=== PATIENT | male | born 1960 | race Caucasian/White ===

== ENCOUNTER → 2017-01-01 | Outpatient (REF) | payer MEDICARE, OTHER ==
[~2017-01-01] MED LIST: /ATOR40TA; /AUGM875TA; ALDA25TA2; ATAC32TA; CALCIUM WITH VIT D; CALCPOW2; CORE6.25; DEMA100T; ECOT325T5; GLUC1000; INSULANT; LASIX40 PO; LEVO25TA2; OMEP20TA7; POTA20TA2; SPIR25TA2; THERGRAN; TOPR100T; VICO5TAB
[2017-01-01 17:23] LABS: BASO % 0.4 % (0.0-1.0); EOS # 0.2 K/mm3 (0.0-0.50); EOS % 2.9 % (0.0-3.0); LARGE UNSTAINED CELL # 0.2 K/mm3 (0.0-0.4); LARGE UNSTAINED CELL % 2.7 % (0.0-4.0); LYMPH # 2.6 K/mm3 (1.5-4.5); LYMPH % 32.4 % (24.0-44.0); MEAN CORPUSCULAR HEMOGLOBIN 29.8 pg (27.0-33.0); MEAN CORPUSCULAR HGB CONC 32.6 g/dl (32.0-36.5); MEAN CORPUSCULAR VOLUME 91.3 fl (80.0-96.0); MONO # 0.6 K/mm3 (0.0-0.8); NEUTROPHILS # 4.3 K/mm3 (1.8-7.7); NEUTROPHILS % 54.5 % (36.0-66.0); PLATELET COUNT, AUTOMATED 188 k/mm3 (150-450); RED CELL DISTRIBUTION WIDTH 12.2 % (11.5-14.5); WHITE BLOOD COUNT 7.8 K/mm3 (4.0-10.0)
[2017-01-01 18:14] LABS: ALBUMIN 3.4 GM/DL (3.2-5.2); ALBUMIN/GLOBULIN RATIO 0.92 (1.00-1.93); BILIRUBIN,TOTAL 0.4 MG/DL (0.2-1.0); CALCIUM LEVEL 8.8 MG/DL (8.5-10.1); CREATININE FOR GFR 1.31 MG/DL (0.70-1.30); POTASSIUM SERUM 4.2 MEQ/L (3.5-5.1); TOTAL PROTEIN 7.1 GM/DL (6.4-8.2)
== END ==
LOC: M SFHCCAPE 07:44
PROVIDERS: ATTEND Physician Assistant
DX: E11.9 Type 2 diabetes mellitus without complications (principal); E78.5 Hyperlipidemia, unspecified; Z12.5 Encounter for screening for malignant neoplasm of prostate
CPT/HCPCS: 36415; 80053; 80061; 82043; 83036; 84443; 85025; G0103

== ENCOUNTER → 2017-04-07 | Outpatient (REF) | payer MEDICARE, OTHER ==
[~2017-04-07] MED LIST changes: -/ATOR40TA; +/ATOR40TA PO; -ALDA25TA2; +ALDA25TA2 PO; +AMIO200T PO; +AMPI500C9 PO; +ASPI325T24 PO; +BACT800T5 PO; +CALC1TAB30 PO; -GLUC1000; +GLUC1000 PO; -INSULANT; +INSULANT INJ; +JANU100T PO; +LISI2.5T3 PO; +METO1TAB7 PO; +POTA10CA PO; +SYNT75TA PO; -THERGRAN; +THERGRAN PO
[2017-04-07 20:39] LABS: ALBUMIN 3.4 GM/DL (3.2-5.2); ALBUMIN/GLOBULIN RATIO 0.89 (1.00-1.93); ALKALINE PHOSPHATASE 99 U/L (45-117); ALT/SGPT 67 U/L (12-78); ANION GAP 12 MEQ/L (8-16); AST/SGOT 35 U/L (15-37); BILIRUBIN,TOTAL 0.5 MG/DL (0.2-1.0); BLOOD UREA NITROGEN 22 MG/DL (7-18); CALCIUM LEVEL 8.8 MG/DL (8.5-10.1); CARBON DIOXIDE LEVEL 25 MEQ/L (21-32); CHLORIDE LEVEL 105 MEQ/L (98-107); CREATININE FOR GFR 1.27 MG/DL (0.70-1.30); FREE T4 1.37 NG/DL (0.76-1.46); GLOMERULAR FILTRATION RATE > 60.0 (>56); GLUCOSE, FASTING 242 MG/DL (70-105); POTASSIUM SERUM 4.6 MEQ/L (3.5-5.1); SODIUM LEVEL 142 MEQ/L (136-145); TOTAL PROTEIN 7.2 GM/DL (6.4-8.2)
== END ==
LOC: M SFHCCAPE 06:58
PROVIDERS: ATTEND Physician Assistant
DX: E11.9 Type 2 diabetes mellitus without complications (principal); E03.9 Hypothyroidism, unspecified

== ENCOUNTER → 2017-07-22 | Outpatient (REF) | payer MEDICARE, OTHER ==
[2017-07-22 16:47] LABS: ALBUMIN 3.4 GM/DL (3.2-5.2); ALBUMIN/GLOBULIN RATIO 0.87 (1.00-1.93); BILIRUBIN,TOTAL 0.5 MG/DL (0.2-1.0); CALCIUM LEVEL 8.8 MG/DL (8.5-10.1); CREATININE FOR GFR 1.32 MG/DL (0.70-1.30); FREE T4 1.31 NG/DL (0.76-1.46); GLOMERULAR FILTRATION RATE 59.3 (>56); POTASSIUM SERUM 4.4 MEQ/L (3.5-5.1); TOTAL PROTEIN 7.3 GM/DL (6.4-8.2)
[2017-07-22 18:12] LABS: BASO # 0.1 10^3/uL (0.0-0.2); BASO % 0.6 % (0.0-1.0); EOS # 0.3 10^3/uL (0.0-0.50); EOS % 2.5 % (0.0-3.0); IMMATURE GRANULOCYTE % 0.5 % (0-0); LYMPH # 3.2 10^3/uL (1.5-4.5); LYMPH % 31.2 % (24.0-44.0); MEAN CORPUSCULAR HEMOGLOBIN 29.9 pg (27.0-33.0); MEAN CORPUSCULAR HGB CONC 32.7 g/dl (32.0-36.5); MEAN CORPUSCULAR VOLUME 91.5 fl (80.0-96.0); MONO # 1.1 10^3/uL (0.0-0.8); MONO % 10.4 % (0.0-5.0); NEUTROPHILS # 5.6 10^3/uL (1.8-7.7); NEUTROPHILS % 54.8 % (36.0-66.0); PLATELET COUNT, AUTOMATED 184 10^3/uL (150-450); RED CELL DISTRIBUTION WIDTH 12.6 % (11.5-14.5); WHITE BLOOD COUNT 10.2 10^3/uL (4.0-10.0)
[2017-07-22 18:25] LABS: ADD MORPHOLOGY? NO
== END ==
LOC: M SFHCCAPE 07:13
PROVIDERS: ATTEND Physician Assistant
DX: I10 Essential (primary) hypertension (principal); E11.9 Type 2 diabetes mellitus without complications; E03.9 Hypothyroidism, unspecified; E78.5 Hyperlipidemia, unspecified

== ENCOUNTER → 2017-08-11 | Outpatient (REF) | payer MEDICARE, OTHER ==
[2017-08-11 17:15] LABS: BASO % 0.2 % (0.0-1.0); EOS # 0.1 10^3/uL (0.0-0.50); EOS % 1.1 % (0.0-3.0); IMMATURE GRANULOCYTE % 1.6 % (0-0); LYMPH # 1.1 10^3/uL (1.5-4.5); LYMPH % 9.6 % (24.0-44.0); MEAN CORPUSCULAR HGB CONC 33.6 g/dl (32.0-36.5); MEAN CORPUSCULAR VOLUME 89.2 fl (80.0-96.0); MONO # 0.9 10^3/uL (0.0-0.8); MONO % 8.3 % (0.0-5.0); NEUTROPHILS # 8.7 10^3/uL (1.8-7.7); NEUTROPHILS % 79.2 % (36.0-66.0); PLATELET COUNT, AUTOMATED 199 10^3/uL (150-450); RED CELL DISTRIBUTION WIDTH 13.1 % (11.5-14.5); WHITE BLOOD COUNT 10.9 10^3/uL (4.0-10.0)
[2017-08-11 18:55] LABS: ALBUMIN 2.3 GM/DL (3.2-5.2); ALBUMIN/GLOBULIN RATIO 0.51 (1.00-1.93); BILIRUBIN,TOTAL 0.6 MG/DL (0.2-1.0); CALCIUM LEVEL 8.6 MG/DL (8.5-10.1); CREATININE FOR GFR 1.53 MG/DL (0.70-1.30); FREE T4 1.74 NG/DL (0.76-1.46); POTASSIUM SERUM 4.6 MEQ/L (3.5-5.1); TOTAL PROTEIN 6.8 GM/DL (6.4-8.2)
[2017-08-12 20:12] LABS: CALCIUM OXALATE CRYSTALS SMALL
== END ==
LOC: M SFHCCAPE 07:50
PROVIDERS: ATTEND Physician Assistant
DX: R35.0 Frequency of micturition (principal); E03.9 Hypothyroidism, unspecified
CPT/HCPCS: 80053; 81001; 81002; 84439; 84443; 85025; 87088; 87186; G0463

== ENCOUNTER → 2017-08-15 | Outpatient (CLI) | payer MEDICARE, OTHER ==
--- NOTE | 2017-08-15 11:59 | REP ---
PA and lateral chest: Comparison 02/09/2012. Lung cain are clear. Cardiac size is normal. The jayna, mediastinum, and bony thorax are unremarkable. There are sternotomy wires, mediastinal surgical clips and a pacemaker entering from the right, all unchanged. Impression: There are no acute cardiopulmonary findings. Signed by Troy Rehman MD 08/15/2017 11:51 A
== END ==
LOC: M WUC 11:22
PROVIDERS: ATTEND Physician Assistant
DX: R07.89 Other chest pain (principal)

== ENCOUNTER 2017-08-17 20:11 | Inpatient (IN) | payer MEDICARE, OTHER ==
[~2017-08-17] VITALS: Ht 175.3 cm; Wt 109.9 kg
[~2017-08-17 20:11] MED LIST changes: -AMIO200T PO; -AMPI500C9 PO; -ASPI325T24 PO; -BACT800T5 PO; -CALC1TAB30 PO; -JANU100T PO; -LISI2.5T3 PO; -METO1TAB7 PO; -POTA10CA PO; -SYNT75TA PO
[2017-08-17] MEDS ORDERED: ALBUTEROL SULFATE 2.5 MG/0.5 ML INH NEB SOLN INH ONE (21:15)
[2017-08-17] MEDS ORDERED: SOD POLYSTYRENE SULFONATE SUSP 15 GM/60 ML UD PO ONE (21:15)
[2017-08-17] MEDS ORDERED: NS 1,000 ML IV ONE (21:15)
[2017-08-17] MEDS: NS 1,000 ML IV SCH (23:01)
[2017-08-18] VITALS (11 sets, daily range): BP systolic 120–186; BP diastolic 64–84
[2017-08-18 01:17] LABS: CALCIUM LEVEL 8.5 MG/DL (8.5-10.1); CREATININE FOR GFR 1.79 MG/DL (0.70-1.30); GLOMERULAR FILTRATION RATE 41.7 (>56); MAGNESIUM LEVEL 1.9 MG/DL (1.8-2.4)
[2017-08-18 01:25] LABS: POTASSIUM SERUM 6.2 MEQ/L (3.5-5.1)
[2017-08-18] MEDS ORDERED: CALCIUM GLUCONATE 1,000 MG in D5W MINI-BAG PLUS 100 ML IV ONE (02:45)
[2017-08-18] MEDS ORDERED: GLUCAGON FOR INJ 1 MG VIAL (J1610) SC PRN (02:45)
[2017-08-18] MEDS ORDERED: GLUCOSE 4 GM CHEW TABLET PO PRN (02:45)
[2017-08-18] MEDS ORDERED: DEXTROSE 50% 50 ML SYRINGE IV PRN (02:45)
[2017-08-18] MEDS ORDERED: ACETAMINOPHEN TAB 650MG DOSE (2X325MG) PO PRN (02:45)
[2017-08-18] MEDS ORDERED: ONDANSETRON 4MG/2ML VIAL (J2405) IV PRN ×2 (02:45→18:15)
[2017-08-18] MEDS ORDERED: ASPI325T24 PO (02:49)
[2017-08-18] MEDS ORDERED: JANU100T PO (02:49)
[2017-08-18] MEDS ORDERED: CALC1TAB30 PO (02:49)
[2017-08-18] MEDS ORDERED: SYNT75TA PO (02:49)
[2017-08-18] MEDS ORDERED: LISI2.5T3 PO (02:49)
[2017-08-18] MEDS ORDERED: METO1TAB7 PO (02:49)
[2017-08-18] MEDS ORDERED: POTA10CA PO (02:49)
[2017-08-18] MEDS ORDERED: AMIO200T PO (03:01)
--- NOTE | 2017-08-18 03:52 | HPEPDOC ---
General Date of Admission Aug 17, 2017 at 20:12 Other Providers PCP: Elaina Livingston Attending Physician: IRINA HINOJOSA MD Chief Complaint The patient is a 57-year-old male admitted with a reason for visit of Hyperkalemia. Source: Patient, Family History of Present Illness 57-year-old male with past medical history of interstitial disability, hypertension, dyslipidemia, diabetes mellitus, OR, CAD s/p CABG, and hypothyroidism was sent to the ER after lab work revealed a serum potassium level of 6.3. The patient states that he was called earlier today to go to the ER for further evaluation. Of note, the patient does take a potassium sparing diuretic spironolactone and supplemental potassium as well. The patient denies any acute complaints of fevers, chills, chest pain, palpitations, abdominal pain , or any nausea/vomiting/diarrhea. Home Medications Scheduled (Calcium 500+D 500-200 mg-Unit) 1 Tab Tab, 1 TAB PO QPM, (Reported) Amiodarone HCl (Amiodarone HCl) 200 Mg Tab, 200 MG PO ASDIRECTED, (Reported) THURSDAY THROUGH THURSDAY AT QPM Aspirin (Aspirin EC) 325 Mg Tabec, 325 MG PO QPM, (Reported) Atorvastatin Calcium (Lipitor) 40 Mg Tab, 40 MG PO QPM, (Reported) Insulin Glargine (Lantus) 100 Mg/Ml Inj, 60 UNITS INJ QPM, (Reported) Levothyroxine Sodium (Synthroid) 75 Mcg Tab, 75 MCG PO QPM, (Reported) Lisinopril (Lisinopril) 2.5 Mg Tab, 2.5 MG PO QPM, (Reported) Metformin Hydrochloride (Glucophage) 1,000 Mg Tab, 1,000 MG PO QPM, (Reported) Metoprolol Succinate (Metoprolol Succinate ER) 50 Mg Tab, 50 MG PO QPM, ( Reported) Multivitamins (Theragran) 1 Tab Tab, 1 TAB PO QPM, (Reported) Potassium Chloride (Klor-Con M10) 10 Meq Tabcr, 10 MEQ PO QPM, (Reported) Sitagliptin Phosphate (Januvia) 100 Mg Tab, 100 MG PO QPM, (Reported) Spironolactone (Aldactone) 25 Mg Tab, 25 MG PO QPM, (Reported) Allergies Coded Allergies: No Known Drug Allergy (Verified Allergy, Unknown, 4/9/13) Past Medical History Medical History As noted in HPI. Surgical History CARDIAC CATHETERIZATION CABG Family History Significant Family History: No pertinent family hx Social History * Smoker: other (currently uses E cigarettes only. Previously smoked 4 packs per day for 5 years, 2 packs per day for most of his life) Alcohol: Denies Drugs: denies Review of Symptoms Other systems 10 point review of systems negative unless otherwise specified in HPI. Physical Examination General Exam: Positive: Alert, Cooperative, No Acute Distress ENT Exam: Positive: Atraumatic, Mucous membr. moist/pink Neck Exam: Negative: JVD Chest Exam: Positive: Clear to auscultation, Normal air movement Heart Exam: Positive: Rate Normal, Normal S1, Normal S2 Telemetry: Positive: Sinus Abdomen Exam: Positive: Soft, Negative: Tenderness Extremity Exam: Negative: Tenderness, Swelling Psych Exam: Positive: Oriented x 3 Vital Signs Vital Signs Date Time Temp Pulse Resp B/P (MAP) Pulse Ox O2 Delivery O2 Flow Rate FiO2 08/18/17 02:20 149/89 (109) 08/18/17 02:11 68 94 08/17/17 20:11 97.1 20 Room Air Laboratory Data Labs 24H Laboratory Tests 2 08/18/17 00:47: Anion Gap 5L, Glomerular Filtration Rate 41.7L, Blood Urea Nitrogen 28H, Creatinine 1.79H, Sodium Level 136, Potassium Level 6.2*H, Chloride Level 105, Carbon Dioxide Level 26, Calcium Level 8.5, Magnesium Level 1.9 CBC/BMP Laboratory Tests 08/18/17 00:47 Calcium Level 8.5 Plan / VTE VTE Prophylaxis Ordered?: Yes Plan Plan Hyperkalemia likely 2/2 Sprinolactone Use, Supplemental Potassium EKG with no acute changes from hyperkalemia Patient given IVF, Kayexalate, Albuterol, and Calcium gluconate in the ER We will withold Sprinolactone and K supplementation Monitor on Telemetry Will repeat Serum K level in the AM Chronic Kidney Disease Stage IIIA Baseline Serum Cr ~1.3 The patient's serum creatinine has been trending over the last 4 weeks, and is currently at 1.79 We will withhold nephrotoxic medications Gentle IV fluid hydration ordered Renal ultrasound We'll follow-up BMP in the a.m. HX of OR, CAD s/p CABG Patient denies any acute complaints of chest pain, palpitations, shortness of breath Continue aspirin, statin, metoprolol Hypertension, stable Continue current regimen Diabetes mellitus Basal insulin ordered at a reduced dose Insulin sliding scale for additional coverage Dyslipidemia Continue statin Hypothyroidism Continue levothyroxine DVT prophylaxis Subcutaneous heparin The patient will be admitted under the service of Dr. Hinojosa, who will begin to follow the patient on 08/18/17 at 7 AM. WILFREDO MOBLEY MD Aug 18, 2017 03:52
[2017-08-18] MEDS ORDERED: BACT800T5 PO (04:15)
[2017-08-18 05:50] LABS: MEAN CORPUSCULAR HEMOGLOBIN 30.2 pg (27.0-33.0); MEAN CORPUSCULAR HGB CONC 32.5 g/dl (32.0-36.5); MEAN CORPUSCULAR VOLUME 92.7 fl (80.0-96.0); PLATELET COUNT, AUTOMATED 257 10^3/uL (150-450); RED CELL DISTRIBUTION WIDTH 13.3 % (11.5-14.5); WHITE BLOOD COUNT 8.8 10^3/uL (4.0-10.0)
[2017-08-18] MEDS: HEPARIN SOD (PORCINE) 5000 UNITS/ML VIAL SC SCH ×3 (06:10→21:35)
[2017-08-18 06:15] LABS: ALBUMIN 2.2 GM/DL (3.2-5.2); ALBUMIN/GLOBULIN RATIO 0.5 (1.00-1.93); BILIRUBIN,TOTAL 0.2 MG/DL (0.2-1.0); CALCIUM LEVEL 8.4 MG/DL (8.5-10.1); CREATININE FOR GFR 1.69 MG/DL (0.70-1.30); GLOMERULAR FILTRATION RATE 44.6 (>56); MAGNESIUM LEVEL 1.8 MG/DL (1.8-2.4); TOTAL PROTEIN 6.6 GM/DL (6.4-8.2)
[2017-08-18 06:23] LABS: POTASSIUM SERUM 5.6 MEQ/L (3.5-5.1)
[2017-08-18] MEDS: NS 1,000 ML IV SCH ×4 (06:45→22:50)
[2017-08-18] MEDS: IPRATROPIUM 0.5MG/ALBUTEROL 2.5MG INH SOL UD 3ML (DUONEB)(J7620) NEB SCH ×3 (07:31→20:07)
--- NOTE | 2017-08-18 08:01 | REP ---
Renal ultrasound: The kidneys are normal size. The right kidney measures 11.8 x 5.2 x 6.2 cm. Left kidney measures 13.1 5.5 x 6.8 cm. Renal cortical echogenicity is normal bilaterally. There is a 1.3 cm calculus in the lower pole left kidney. There is mild left renal hydronephrosis. There are no calculi are hydronephrosis on the right. There are no solid or cystic renal masses. There is questionably a soft tissue edema adjacent to the lower pole of the right kidney. This is nonspecific and could represent hemorrhage, pyelonephritis or renal infarct. Bladder ultrasound: The bladder appears adequately distended. No bladder polyps or masses are identified by ultrasound. Impression: Mild left hydronephrosis. 1.3 cm calculus in the lower pole left kidney. Soft tissue edema adjacent to the right renal lower pole, nonspecific, hemorrhage versus pyelonephritis versus renal infarct versus urinoma. No Signed by Troy Rehman MD 08/18/2017 07:53 A
[2017-08-18] MEDS: HumaLOG INSULIN (NovoLOG) PER UNIT SC SCH ×3 (08:51→18:34)
--- NOTE | 2017-08-18 09:33 | ECGEPIP ---
Stationary ECG Study [facility] - ED Test Date: 2017-08-17 Pat Name: JUAN ALBERTO RIVERA Department: Room: [place] [address] Gender: M Police Clerk: BuckB: 1960 Requested By: GERMÁN Alvarado Order Number: [id number] Reading MD: Dean Chakraborty Measurements Intervals [place] Rate: 74 P: 108 [place]: 224 QRS: 101 QRSD: 132 T: -39 QT: 375 QTc: 417 Interpretive Statements SINUS RHYTHM WITH FIRST DEGREE AV BLOCK MARKED RIGHT AXIS DEVIATION RIGHT BUNDLE BRANCH BLOCK NSTTW ABNORMALITIES NO PRIORS Electronically Signed On 08-18-2017 9:33:12 EDT by Dean Chakraborty
[2017-08-18] MEDS ORDERED: SOD POLYSTYRENE SULFONATE SUSP 15 GM/60 ML UD PO ONE (10:00)
--- NOTE | 2017-08-18 12:11 | REP ---
CT abdomen pelvis without IV or bowel contrast: Comparison is 09/13/2008. There is a staghorn calculus in the left renal pelvis measuring 15 mm craniocaudad by 17 mm transversely by 9 mm AP that is partially within the proximal left ureter. There is left hydronephrosis and mild perinephric stranding. There are no right renal collecting system calculi. There are vascular atheromatous calcifications in the region There is no ureteral nephrosis on the left on the right. There are no bladder calculi. The visualized lung cain are unremarkable. The unenhanced hepatic parenchyma, gallbladder, pancreas and spleen are unremarkable. The adrenals are unremarkable. Abdominal aorta is unremarkable. There is calcified atheroma at the origins of the celiac and superior mesenteric arteries. There is no bowel distension or obstruction. Pelvis: There are surgical clips adjacent to the cecum compatible with appendectomy. There is no adenopathy or ascites. There are descending colon and sigmoid colon diverticula without diverticulitis. Impression: Left renal staghorn calculus is partially within the proximal left ureter. There is left hydronephrosis. There is no hydroureter. There is diverticulosis without diverticulitis. Signed by Troy Rehman MD 08/18/2017 12:03 P
[2017-08-18 13:51] LABS: CREATININE FOR GFR 1.5 MG/DL (0.70-1.30); GLOMERULAR FILTRATION RATE 51.2 (>56)
[2017-08-18 13:58] LABS: POTASSIUM SERUM 5.8 MEQ/L (3.5-5.1)
--- NOTE | 2017-08-18 14:13 | IPN ---
DATE: 08/18/2017 Mr. Suarez is awake and appropriately interactive. He feels well. He has no complaints. No chest pain. No shortness of breath. No abdominal pain. Temperature 98.4. Pulse 66. Respiratory rate 18. Blood pressure 129/73. 94% on room air. Ins and outs notable for a negative fluid balance of -660. Body mass index was 36.1. He is awake, appropriately interactive and pleasantly conversant. No acute distress. Neck is thick. Breathing is symmetrical. I:E ratio is 1:3, diminished in the bases. Heart is in a regular rate and rhythm. Normal S1, S2. No significant arrhythmia on the monitor. Abdomen soft, doughy, nontender. White cell count 8.8, hemoglobin 12 and platelets of 257. Sodium 139, potassium 5.6, BUN 25, creatinine 1.69 trending downward. Ultrasound this morning showed a suspicion for a left sided hydronephrosis. CT scan in follow up shows a left renal staghorn calculus partially within the proximal left ureter with left hydronephrosis. Urine culture was insensitive only to erythromycin. ASSESSMENT: This is a 57-year-old with acute renal failure, hyperkalemia, with staghorn calculus and urinary tract infection. PLAN: 1. . The case has been discussed with Dr. Doe who has been consulted. Plan is to place a urinary stent with plans for further outpatient workup. Will continue with IV antibiotics. 2. Patient has acute renal failure which will be improved with placement of a stent, withholding nephrotoxic medications, and giving IV fluid. 3. Patient has history of myocardial infarction (CA) and coronary artery disease status post coronary artery bypass graft (CABG). Has had no complaints of chest pain or shortness of breath. 4. Patient has hypertension. 5. Patient has diabetes. 6. Patient has dyslipidemia. 7. Patient has hypothyroidism. I discussed this case with the patient and his health care proxy at bedside.
[2017-08-18] MEDS ORDERED: CALCIUM CHLORIDE 10% 1 GM/10 ML SYR IV STA ×2 (14:21→14:24)
[2017-08-18] MEDS ORDERED: ceFAZolin 1GM INJ (J0690) As Ordered ONE (15:26)
[2017-08-18] MEDS ORDERED: CONRAY-60 60% 50ML VIAL (Q9961) As Ordered ONE (16:29)
--- NOTE | 2017-08-18 16:34 | SMCUROLCON ---
Urology Consultation General Date of Consultation 08/18/17 Reason For Consultation This patient is seen for Hyperkalemia. History of Present Illness This is a 57 y/o M w/ a PMH significant for CAD (s/p CABG), HTN, DM2, and CKD, admitted to the hospital this morning for hyperkalemia. As part of his w/u, a renal US was performed that was notable for mild left hydronephrosis and a left renal stone. A CT A/P was then obtained that was notable for a 1cm left renal pelvis stone causing mild to moderate left hydronephrosis. The patient denies having left flank or abdominal pain, but his sister notes that he did have some pain last week. She also notes that he was started on a 7 day course of antibiotics last week for a UTI. He has a few doses of antibiotics left. He has no prior history of kidney stones. He has no urinary complaints at this time. Past Medical History Medical History see HPI Surgical Hstory see HPI Medications Current Medications Current Medications Acetaminophen (Tylenol Tab) 650 mg Q4HP PRN PO MILD PAIN OR FEVER; Start 08/18 at 02:45; Stop 09/17/17 at 02:44 Albuterol/ Ipratropium (Duoneb (Ipr 0.5mg/Alb 2.5mg)) 3 ml RQ6H NEB Last administered on 08/18/17 13:00; Start 08/18/17 at 08:00; Stop 09/17/17 at 07 :59 Amiodarone HCl (Pacerone, Cordarone) 200 mg MoTuWeThFr@1800 PO ; Start at 18:00; Stop 09/17/17 at 17:59 Aspirin (Ecotrin) 325 mg DAILY@1800 PO ; Start 08/18/17 at 18:00; Stop at 17:59 Atorvastatin Calcium (Lipitor) 40 mg DAILY@1800 PO ; Start 08/18/17 at 18:00; Stop 09/17/17 at 17:59 Calcium Chloride (Calcium Chloride 10%) 1 gm STAT STAT IV ; Start 08/18/17 at 14:21; Stop 08/18/17 at 14:22; Status Cancel Calcium Chloride (Calcium Chloride 10%) 1 gm STAT STAT IV Last administered on 08/18/17 14:38; Start 08/18/17 at 14:24; Stop 08/18/17 at 14:25; Status DC Dextrose (Dextrose 50%) 25 ml ASDIRECTED PRN IV SEE LABEL COMMENTS; Start at 02:45; Stop 09/17/17 at 02:44 Glucagon (Glucagon) 1 mg ASDIRECTED PRN SC SEE LABEL COMMENTS; Start 08/18/17 at 02:45; Stop 09/17/17 at 02:44 Glucose (Glucose) 16 GM ASDIRECTED PRN PO SEE LABEL COMMENTS; Start 08/18/17 at 02:45; Stop 09/17/17 at 02:44 Heparin Sodium (Porcine) (Heparin) 5,000 units Q8H SC Last administered on 06:10; Start 08/18/17 at 06:00; Stop 08/23/17 at 05:59 Home Med (Med Rec Complete!) ASDIRECTED XX ; Start 08/18/17 at 03:15; Stop at 03:15; Status DC Insulin Detemir (Levemir Insulin) 30 units DAILY@1800 SC ; Start 08/18/17 at 18 :00; Stop 09/17/17 at 17:59 Insulin Human Lispro (HumaLOG INSULIN) SEE PROTOCOL TABLE AC SC Last administered on 08/18/17 08:51; Start 08/18/17 at 07:30; Stop 09/17/17 at 07 :29 Insulin Human Lispro (HumaLOG INSULIN) SEE PROTOCOL TABLE QHS SC ; Start at 21:00; Stop 09/17/17 at 20:59 Levothyroxine Sodium (Synthroid) 75 mcg DAILY@1800 PO ; Start 08/18/17 at 18:00 ; Stop 09/17/17 at 17:59 Metoprolol Succinate (TopROL XL) 50 mg DAILY@1800 PO ; Start 08/18/17 at 18:00 ; Stop 09/17/17 at 17:59 Ondansetron HCl (ZOFRAN INJection) 4 mg Q6HP PRN IV NAUSEA OR VOMITING; Start 08/18/17 at 02:45; Stop 09/17/17 at 02:44 Sodium Chloride 1,000 ml @ 150 mls/hr Q6H40M IV Last administered on 14:25; Start 08/17/17 at 22:30; Stop 09/16/17 at 22:29 Allergies Allergies: Coded Allergies: No Known Drug Allergy (Verified Allergy, Unknown, 02/01/13) Review of Systems General: Denies: Fatigue, Malaise Skin: Denies: Rash, Lesions, Breakdown, Nail Changes Pulmonary: Denies: Dyspnea, Cough Cardiovascular: Denies Chest Pain, Denies Palpitations Gastrointestinal: Denies: Nausea, Vomiting, Abdominal Pain Genitourinary: Denies: Dysuria, Frequency, Incontinence, Hematuria Musculoskeletal: Denies: Neck Pain, Back Pain Psych: Reports: Mood Normal Physical Examination General Exam: Alert, No Acute Distress Chest Exam: Clear to auscultation Heart Exam: Rate Normal, Regular Rhythm Abdomen Exam: Soft, No: Tenderness Skin Exam: Nl turgor and temperature Neuro Exam: Normal Speech Psych Exam: Mental status NL, Mood NL Vital Signs/I&O Vital Signs Date Time Temp Pulse Resp B/P (MAP) Pulse Ox O2 Delivery O2 Flow Rate FiO2 08/18/17 12:00 98.7 72 18 133/76 (95) 96 Room Air I&O- Last 24 Hours up to 6 AM 08/19/17 06:00 Intake Total 1320 ml Output Total 1000 ml Balance 320 ml Laboratory Data 24H Labs Laboratory Tests 2 08/18/17 00:47: Anion Gap 5L, Glomerular Filtration Rate 41.7L, Blood Urea Nitrogen 28H, Creatinine 1.79H, Sodium Level 136, Potassium Level 6.2*H, Chloride Level 105, Carbon Dioxide Level 26, Calcium Level 8.5, Magnesium Level 1.9 08/18/17 05:32: Anion Gap 8, Glomerular Filtration Rate 44.6L, Blood Urea Nitrogen 25H, Creatinine 1.69H, Sodium Level 139, Potassium Level 5.6H, Chloride Level 105, Carbon Dioxide Level 26, Calcium Level 8.4L, Magnesium Level 1.8, Nucleated Red Blood Cells % (auto) 0.0, Aspartate Amino Transf (AST/SGOT) 40H, Alanine Aminotransferase (ALT/SGPT) 78, Alkaline Phosphatase 109, Total Bilirubin 0.2, Total Protein 6.6, Albumin 2.2L, Albumin/Globulin Ratio 0.50L 08/18/17 13:09: Anion Gap 6L, Glomerular Filtration Rate 51.2L, Blood Urea Nitrogen 22H, Creatinine 1.50H, Sodium Level 137, Potassium Level 5.8H, Chloride Level 105, Carbon Dioxide Level 26, Calcium Level 8.0L CBC/BMP Laboratory Tests 08/18/17 00:47 Calcium Level 8.5 08/18/17 05:32 Calcium Level 8.4 L, Red Blood Count 3.98 L, Mean Corpuscular Volume 92.7, Mean Corpuscular Hemoglobin 30.2, Mean Corpuscular Hemoglobin Concent 32.5, Red Cell Distribution Width 13.3, Aspartate Amino Transf (AST/SGOT) 40 H, Alanine Aminotransferase (ALT/SGPT) 78, Alkaline Phosphatase 109, Total Bilirubin 0.2, Total Protein 6.6, Albumin 2.2 L 08/18/17 13:09 Calcium Level 8.0 L Assessment This is a 57 y/o M admitted for hyperkalemia, now found to have an obstructing 1cm left ureteropelvic junction stone. The left renal obstruction might be playing a role in the hyperkalemia and GAYATRI. I recommended taking him to the OR today for cystoscopy and left ureteral stent placement. After a discussion of the risks and benefits of the procedure, informed consent was signed. Plan - informed consent signed for cystoscopy, left ureteral stent placement - levaquin preop - NPO until surgery DAMEON SHELLEY MD Aug 18, 2017 16:34
[2017-08-18] MEDS ORDERED: MIDAZOLAM INJ 2 MG/2 ML VIAL (J2250) As Ordered ONE (16:45)
[2017-08-18] MEDS ORDERED: LevoFLOXacin IV 500 MG in APPROPRIATE DILUENT 1 EA IV ONE (16:45)
[2017-08-18] MEDS ORDERED: fentaNYL 100 MCG/2 ML INJECTION (J3010) As Ordered ONE (16:45)
[2017-08-18] MEDS ORDERED: LIDOCAINE 2% 5ML JELLY UROJET As Ordered ONE (16:49)
[2017-08-18] MEDS ORDERED: LevoFLOXacin(LEVAQUIN)500 MG/100 ML BAG (J1956) As Ordered ONE (16:49)
[2017-08-18] MEDS ORDERED: PROPOFOL 200 MG/20 ML VIAL As Ordered ONE (17:09)
[2017-08-18] MEDS ORDERED: LIDOCAINE 2% INJ 100 MG/5 ML SDV (FOR ANES.) As Ordered ONE (17:09)
--- NOTE | 2017-08-18 17:56 | REP ---
Retrograde pyelogram: Four views. History: Hyperkalemia. Findings: A sequence of four last image hold fluoroscopic spot radiographs of the left abdomen document left ureteral cannulation, contrast injection, and double pigtail ureteral stenting. 44 seconds of fluoroscopy time is reported. Signed by Donis Kuhn MD 08/19/2017 02:17 P
[2017-08-18] MEDS ORDERED: LEVOTHYROXINE 75MCG TABLET (0.075MG) PO SCH (18:00)
[2017-08-18] MEDS ORDERED: AMIODARONE 200 MG TAB (PACERONE) PO SCH (18:00)
[2017-08-18] MEDS ORDERED: ATORVASTATIN 20 MG TAB PO SCH (18:00)
[2017-08-18] MEDS ORDERED: METOPROLOL SUCC (TopROL XL) 50MG **XL** TAB PO SCH (18:00)
[2017-08-18] MEDS ORDERED: ASPIRIN ENTERIC 325 MG TAB PO SCH (18:00)
[2017-08-18] MEDS ORDERED: LEVEMIR (INSULIN DETEMIR) 1 UNITS/0.01ML SC SCH (18:00)
[2017-08-18] MEDS ORDERED: LR 1,000 ML IV SCH (18:15)
[2017-08-18] MEDS ORDERED: fentaNYL 100 MCG/2 ML INJECTION (J3010) IV PRN (18:15)
[2017-08-18 18:39] LABS: CALCIUM LEVEL 8.1 MG/DL (8.5-10.1); CREATININE FOR GFR 1.52 MG/DL (0.70-1.30); GLOMERULAR FILTRATION RATE 50.4 (>56); POTASSIUM SERUM 5.6 MEQ/L (3.5-5.1)
[2017-08-18] MEDS ORDERED: HumaLOG INSULIN (NovoLOG) PER UNIT SC SCH (21:00)
[2017-08-19 00:32] LABS: CALCIUM LEVEL 8.4 MG/DL (8.5-10.1); CREATININE FOR GFR 1.41 MG/DL (0.70-1.30)
[2017-08-19 00:36] LABS: POTASSIUM SERUM 5.5 MEQ/L (3.5-5.1)
[2017-08-19] MEDS: IPRATROPIUM 0.5MG/ALBUTEROL 2.5MG INH SOL UD 3ML (DUONEB)(J7620) NEB SCH ×2 (02:00→07:07)
[2017-08-19 04:00] VITALS: BP 134/82
[2017-08-19] MEDS: HEPARIN SOD (PORCINE) 5000 UNITS/ML VIAL SC SCH (05:09)
[2017-08-19 05:43] LABS: MEAN CORPUSCULAR HEMOGLOBIN 30.4 pg (27.0-33.0); MEAN CORPUSCULAR HGB CONC 32.6 g/dl (32.0-36.5); PLATELET COUNT, AUTOMATED 200 10^3/uL (150-450); RED CELL DISTRIBUTION WIDTH 13.2 % (11.5-14.5); WHITE BLOOD COUNT 9.1 10^3/uL (4.0-10.0)
[2017-08-19 06:03] LABS: ANION GAP 5 MEQ/L (8-16); BLOOD UREA NITROGEN 16 MG/DL (7-18); CARBON DIOXIDE LEVEL 26 MEQ/L (21-32); CHLORIDE LEVEL 107 MEQ/L (98-107); CREATININE FOR GFR 1.28 MG/DL (0.70-1.30); GLOMERULAR FILTRATION RATE > 60.0 (>56); GLUCOSE, FASTING 146 MG/DL (70-105); MAGNESIUM LEVEL 1.7 MG/DL (1.8-2.4); POTASSIUM SERUM 5.1 MEQ/L (3.5-5.1); SODIUM LEVEL 138 MEQ/L (136-145)
[2017-08-19] MEDS: NS 1,000 ML IV SCH (06:31)
[2017-08-19] MEDS ORDERED: MAG SULF 1GM/100ML (MAG RUN) 1 GM in APPROPRIATE DILUENT 1 EA IV ONE (06:45)
[2017-08-19 08:00] VITALS: BP 134/70
[2017-08-19] MEDS ORDERED: AMPI500C9 PO (08:10)
--- NOTE | 2017-08-19 08:10 | IPNPDOC ---
Assessment/Plan Date Seen The patient was seen on 08/19/17. Patient Summary This is a 57 y/o M admitted for hyperkalemia, now found to have an obstructing 1cm left ureteropelvic junction stone. He is POD1 s/p cysto and left ureteral stent placement. His K level is normal this morning. His Cr is also trending down. Plan/VTE VTE Prophylaxis Ordered?: Yes Plan - ok for discharge from urology standpoint - per patient's sister, she believes he received bactrim for the enterococcus UTI diagnosed last week - if this is the case, it did not cover the UTI and he would need a 10 day course of culture-specific antibiotics - my office will arrange f/u for him to see me to get him set up for surgery for stone removal Subjective Review oF Systems Chief Complaint The patient is a 57-year-old male admitted with a reason for visit of Hyperkalemia. Events since Last Encounter No acute events o/n. The patient notes mild left flank pain since stent placement last night. He also notes urinary frequency. Denies fevers or chills. Objective Physical Examination General Exam: Alert, Cooperative, No Acute Distress Heart Exam: Positive: Normal S1, Normal S2 ABDOMEN EXAM: Soft Psych Exam: Mental status NL, Mood NL Vital Signs/I&O Vital Signs Date Time Temp Pulse Resp B/P (MAP) Pulse Ox O2 Delivery O2 Flow Rate FiO2 08/19/17 04:00 97.4 66 18 134/82 (99) 96 Room Air Laboratory Data Labs 24H Laboratory Tests 2 08/18/17 13:00: Bedside Glucose (Misc Panel) 205H 08/18/17 13:09: Anion Gap 6L, Glomerular Filtration Rate 51.2L, Blood Urea Nitrogen 22H, Creatinine 1.50H, Sodium Level 137, Potassium Level 5.8H, Chloride Level 105, Carbon Dioxide Level 26, Calcium Level 8.0L 08/18/17 17:43: Anion Gap 7L, Glomerular Filtration Rate 50.4L, Blood Urea Nitrogen 20H, Creatinine 1.52H, Sodium Level 138, Potassium Level 5.6H, Chloride Level 105, Carbon Dioxide Level 26, Calcium Level 8.1L 08/18/17 21:40: Bedside Glucose (Misc Panel) 249H 08/18/17 23:51: Anion Gap 6L, Glomerular Filtration Rate 55.0L, Blood Urea Nitrogen 18, Creatinine 1.41H, Sodium Level 135L, Potassium Level 5.5H, Chloride Level 105, Carbon Dioxide Level 24, Calcium Level 8.4L 08/19/17 05:29: Anion Gap 5L, Glomerular Filtration Rate > 60.0, Blood Urea Nitrogen 16, Creatinine 1.28, Sodium Level 138, Potassium Level 5.1, Chloride Level 107, Carbon Dioxide Level 26, Calcium Level 8.0L, Nucleated Red Blood Cells % (auto) 0.0, Magnesium Level 1.7L CBC/BMP Laboratory Tests 08/18/17 13:09 Calcium Level 8.0 L 08/18/17 17:43 Calcium Level 8.1 L 08/18/17 23:51 Calcium Level 8.4 L 08/19/17 05:29 Calcium Level 8.0 L, Red Blood Count 3.59 L, Mean Corpuscular Volume 93.0, Mean Corpuscular Hemoglobin 30.4, Mean Corpuscular Hemoglobin Concent 32.6, Red Cell Distribution Width 13.2 FSBS Laboratory Tests Test 08/18/17 13:00 08/18/17 21:40 Range/Units Bedside Glucose (Misc Panel) 205 249 70-105 MG/DL DAMEON SHELLEY MD Aug 19, 2017 08:10
[2017-08-19] MEDS: HumaLOG INSULIN (NovoLOG) PER UNIT SC SCH (08:50)
[2017-08-19] MEDS ORDERED: INFLUENZA QUADRIVALENT PF VACCINE 0.5ML SYRINGE (90686) IM ONE (09:00)
--- NOTE | 2017-08-19 17:33 | RO ---
DATE OF PROCEDURE: 08/18/2017 PREPROCEDURE DIAGNOSIS: Obstructing left ureteral stone. POSTPROCEDURE DIAGNOSIS: Obstructing left ureteral stone. PROCEDURE: Cystoscopy, left retrograde pyelogram with intraoperative interpretation of images, left ureteral stent placement. SURGEON: Dr. Lowell Doe GRADES 9 THROUGH 12 TEACHER: None. ANESTHESIA: Monitored anesthesia care (MAC). OPERATIVE INDICATIONS: This is a 57-year-old male who was admitted to the hospital with hyperkalemia and, on workup, was found to have an obstructing left ureteropelvic junction stone with moderate left hydronephrosis. He also had a urinary tract infection. It was recommended he be brought to the operating room today for the above listed procedure. DESCRIPTION OF PROCEDURE: Patient brought to the operating room and MAC anesthesia administered. Prophylactic antibiotics were infused. He was then placed in the dorsal lithotomy position and prepped and draped in the usual sterile fashion. A rigid cystoscope was inserted into the urethral meatus and advanced to the bladder. Once it was in the bladder, a guidewire was advanced up the left collecting system. I then advanced a #5[place] open-ended ureteral catheter up the left collecting system. The wire was then removed, and a retrograde pyelogram was then performed. It was notable for moderate left hydronephrosis. At this point, the wire was advanced back up the left collecting system and the open-ended ureteral catheter was removed. I then utilized the wire to advance the #7-[place] x 22-32 cm JJ ureteral stent up the left collecting system. The wire was then removed, and there were adequate curls of the stent in the left renal pelvis and in the bladder. The bladder was then emptied of all fluid, and this marked the conclusion of the procedure. The patient was then taken out of the dorsal lithotomy position, awakened from anesthesia, and transported to the recovery room in stable condition. ESTIMATED BLOOD LOSS: 0 mL. COMPLICATIONS: None. SPECIMENS: None. PLAN: The patient will be taken back to his room and will be monitored to see if his hyperkalemia improves. We will have to bring him back to the operating room in a few weeks for a cystoscopy, left ureteroscopy with laser lithotripsy.
--- NOTE | 2017-08-20 10:38 | DSES ---
DATE OF ADMISSION: 08/18/2017 DATE OF DISCHARGE: 08/19/2017 SPECIALISTS INVOLVED IN CARE: Dr. Doe. PROCEDURES PERFORMED DURING STAY: Placement of a left sided ureteral stent. DISCHARGE DIAGNOSES: 1. Obstructive uropathy. 2. Acute renal failure. 3. Hyperkalemia in the setting of acute renal failure. 4. Coronary artery disease, status post coronary artery bypass graft (CABG). 5. Hypertension. 6. Diabetes. 7. Dyslipidemia. 8. Hypothyroidism. SUMMARY OF HOSPITALIZATION: This is a 57-year-old who was sent in due to abnormal labs and was found to have acute renal failure and hyperkalemia. He was noted to have a left sided hydronephrosis with an obstructing stone. He was admitted to the hospitalist service. He was seen in consultation by Dr. Doe. He had previously been treated for a urinary tract infection. A ureteral stent was placed. His renal function improved. His hyperkalemia improved. On the day of discharge, he was feeling well. He had no complaints of pain, chest pain or shortness of breath. Temperature was 97.6, pulse 62, respiratory rate 18, blood pressure 134/70 and 95% on room air. Awake and appropriately interactive. Pleasantly conversant. Breathing is symmetrical, rested. Heart is regular rate and rhythm. Abdomen soft, doughy, nontender. Potassium was 5.1. Creatinine was 1.28, down from 1.79. White cell count 9.1. DISCHARGE INSTRUCTIONS: Followup with Dr. Doe per his instructions. Followup with Elaina Retana at [place] on 08/25/2017 at 11:00 a.m. Continue with ampicillin 500 mg by mouth four times daily, #40, amiodarone 200 mg by mouth Thursday through Thursday, aspirin 325 mg by mouth daily, atorvastatin 40 mg by mouth every evening, calcium and vitamin D supplement, Lantus 40 units subcutaneous every morning, Synthroid 60 mg every morning, lisinopril 2.5 mg every evening, metformin 1000 mg every evening, metoprolol succinate 50 mg by mouth every evening, multivitamin tablet daily. Restart potassium supplement in two days, 10 mEq. Restart Aldactone 25 mg every evening in two days. Continue Januvia 100 mg by mouth every evening. Discontinue Bactrim.
== END 2017-08-19 12:34 | disposition home health service (06) | DRG 694 ==
LOC: M ED 20:11 → M ED INP 20:12 → M PCU 08-18 04:10 → OBSVTOIN 08-18 13:50
PROVIDERS: ADMIT Internal Medicine; ATTEND Internal Medicine
PROC: 0T9780Z Drainage of Left Ureter with Drainage Device, Via Natural or Artificial Opening Endoscopic (ICD-10-PCS; principal; 2017-08-18 10:45)
DX: N13.0 Hydronephrosis with ureteropelvic junction obstruction (principal); N17.9 Acute kidney failure, unspecified; N39.0 Urinary tract infection, site not specified; E03.9 Hypothyroidism, unspecified; I12.9 Hypertensive chronic kidney disease with stage 1 through stage 4 chronic kidney disease, or unspecified chronic kidney disease; E78.5 Hyperlipidemia, unspecified; N18.3 Chronic kidney disease, stage 3 (moderate); E87.5 Hyperkalemia; E11.9 Type 2 diabetes mellitus without complications; I25.2 Old myocardial infarction; I25.10 Atherosclerotic heart disease of native coronary artery without angina pectoris; Z79.4 Long term (current) use of insulin; Z79.899 Other long term (current) drug therapy; Z95.1 Presence of aortocoronary bypass graft; F17.290 Nicotine dependence, other tobacco product, uncomplicated

== ENCOUNTER → 2017-08-17 | Outpatient (REF) | payer MEDICARE, OTHER ==
[2017-08-17 16:54] LABS: BASO # 0.1 10^3/uL (0.0-0.2); BASO % 0.6 % (0.0-1.0); EOS # 0.1 10^3/uL (0.0-0.50); EOS % 1.2 % (0.0-3.0); LYMPH # 2.7 10^3/uL (1.5-4.5); LYMPH % 21.9 % (24.0-44.0); MEAN CORPUSCULAR HEMOGLOBIN 29.5 pg (27.0-33.0); MEAN CORPUSCULAR HGB CONC 32.3 g/dl (32.0-36.5); MEAN CORPUSCULAR VOLUME 91.2 fl (80.0-96.0); MONO # 0.8 10^3/uL (0.0-0.8); MONO % 6.3 % (0.0-5.0); NEUTROPHILS # 8.1 10^3/uL (1.8-7.7); PLATELET COUNT, AUTOMATED 343 10^3/uL (150-450); RED CELL DISTRIBUTION WIDTH 13.3 % (11.5-14.5); WHITE BLOOD COUNT 12.1 10^3/uL (4.0-10.0)
[2017-08-17 18:48] LABS: ALBUMIN 2.7 GM/DL (3.2-5.2); ALBUMIN/GLOBULIN RATIO 0.59 (1.00-1.93); BILIRUBIN,TOTAL 0.4 MG/DL (0.2-1.0); CALCIUM LEVEL 9.3 MG/DL (8.5-10.1); CREATININE FOR GFR 1.68 MG/DL (0.70-1.30); FREE T4 1.46 NG/DL (0.76-1.46); GLOMERULAR FILTRATION RATE 44.9 (>56); TOTAL PROTEIN 7.3 GM/DL (6.4-8.2)
[2017-08-17 19:08] LABS: POTASSIUM SERUM 6.3 MEQ/L (3.5-5.1)
== END ==
LOC: M SFHCCAPE 10:46
PROVIDERS: ATTEND Physician Assistant
DX: N39.0 Urinary tract infection, site not specified (principal); E03.9 Hypothyroidism, unspecified

== ENCOUNTER → 2017-08-25 | Outpatient (REF) | payer MEDICARE, OTHER ==
[~2017-08-25] MED LIST changes: +AMIO200T PO; +AMPI500C9 PO; +ASPI325T24 PO; +BACT800T5 PO; +CALC1TAB30 PO; +JANU100T PO; +LISI2.5T3 PO; +METO1TAB7 PO; +POTA10CA PO; +SYNT75TA PO
[2017-08-25 17:19] LABS: BASO % 0.4 % (0.0-1.0); EOS # 0.1 10^3/uL (0.0-0.50); EOS % 1.1 % (0.0-3.0); IMMATURE GRANULOCYTE % 0.5 % (0-0); LYMPH # 2.5 10^3/uL (1.5-4.5); MEAN CORPUSCULAR HEMOGLOBIN 29.7 pg (27.0-33.0); MEAN CORPUSCULAR HGB CONC 32.3 g/dl (32.0-36.5); MEAN CORPUSCULAR VOLUME 92.2 fl (80.0-96.0); MONO # 0.8 10^3/uL (0.0-0.8); MONO % 7.6 % (0.0-5.0); NEUTROPHILS # 6.6 10^3/uL (1.8-7.7); NEUTROPHILS % 65.4 % (36.0-66.0); PLATELET COUNT, AUTOMATED 228 10^3/uL (150-450)
[2017-08-25 17:24] LABS: CALCIUM OXALATE CRYSTALS MODERATE
[2017-08-25 17:33] LABS: ALBUMIN 3.3 GM/DL (3.2-5.2); ALBUMIN/GLOBULIN RATIO 0.79 (1.00-1.93); BILIRUBIN,TOTAL 0.3 MG/DL (0.2-1.0); CREATININE FOR GFR 1.33 MG/DL (0.70-1.30); GLOMERULAR FILTRATION RATE 58.8 (>56); POTASSIUM SERUM 4.5 MEQ/L (3.5-5.1); TOTAL PROTEIN 7.5 GM/DL (6.4-8.2)
== END ==
LOC: M SFHCCAPE 08:46
PROVIDERS: ATTEND Physician Assistant
DX: E87.5 Hyperkalemia (principal); E11.9 Type 2 diabetes mellitus without complications; I10 Essential (primary) hypertension; E03.9 Hypothyroidism, unspecified; N13.9 Obstructive and reflux uropathy, unspecified
CPT/HCPCS: 80053; 81001; 85025; 87086; G0463

== ENCOUNTER → 2017-10-06 | Outpatient (REF) | payer MEDICARE, OTHER ==
[~2017-10-06] MED LIST changes: +[UNRECOGNIZED DRUG - REMARK] PO
[2017-10-06 17:08] LABS: CALCIUM LEVEL 8.9 MG/DL (8.5-10.1); CREATININE FOR GFR 1.4 MG/DL (0.70-1.30); GLOMERULAR FILTRATION RATE 55.4 (>56); POTASSIUM SERUM 4.5 MEQ/L (3.5-5.1)
[2017-10-06 17:14] LABS: MEAN CORPUSCULAR HEMOGLOBIN 29.6 pg (27.0-33.0); MEAN CORPUSCULAR VOLUME 89.8 fl (80.0-96.0); PLATELET COUNT, AUTOMATED 208 10^3/uL (150-450); WHITE BLOOD COUNT 8.9 10^3/uL (4.0-10.0)
== END ==
LOC: M LABSMT 09:41
PROVIDERS: ATTEND Urology
DX: Z01.818 Encounter for other preprocedural examination (principal); N20.0 Calculus of kidney; N39.0 Urinary tract infection, site not specified

== ENCOUNTER 2017-10-12 09:33 | Day surgery (SDC) | payer MEDICARE, OTHER ==
[~2017-10-12] VITALS: Ht 177.8 cm; Wt 111.5 kg
[~2017-10-12 09:33] MED LIST changes: -[UNRECOGNIZED DRUG - REMARK] PO
[2017-10-12] MEDS ORDERED: LR 1,000 ML IV ONE (09:45)
[2017-10-12] MEDS ORDERED: [UNRECOGNIZED DRUG - REMARK] PO (10:24)
[2017-10-12] MEDS ORDERED: HumaLOG INSULIN (NovoLOG) PER UNIT As Ordered ONE (11:00)
[2017-10-12] MEDS ORDERED: GENTAMICIN 80 MG in APPROPRIATE DILUENT 1 EA IV ONE (11:00)
[2017-10-12] MEDS ORDERED: VANCOMYCIN HCL 1,000 MG, VIAL MATE ADAPTER 1 EACH in D5W 250 ML IV ONE (11:00)
[2017-10-12] MEDS ORDERED: HumaLOG INSULIN (NovoLOG) PER UNIT SC ONE (11:15)
[2017-10-12] MEDS ORDERED: PROPOFOL 200 MG/20 ML VIAL As Ordered ONE (12:38)
[2017-10-12] MEDS ORDERED: ONDANSETRON 4MG/2ML VIAL (J2405) As Ordered ONE (12:38)
[2017-10-12] MEDS ORDERED: SUCCINYLCHOLINE 100 MG/5 ML SYRINGE (J0330) As Ordered ONE (12:38)
[2017-10-12] MEDS ORDERED: METOCLOPRAMIDE INJ 10MG/2ML VIAL (J2765) As Ordered ONE (12:38)
[2017-10-12] MEDS ORDERED: LIDOCAINE 2% INJ 100 MG/5 ML SDV (FOR ANES.) As Ordered ONE (12:38)
[2017-10-12] MEDS ORDERED: fentaNYL 100 MCG/2 ML INJECTION (J3010) As Ordered ONE (12:39)
[2017-10-12] MEDS ORDERED: MIDAZOLAM INJ 2 MG/2 ML VIAL (J2250) As Ordered ONE (12:39)
[2017-10-12] MEDS ORDERED: HumaLOG INSULIN (NovoLOG) PER UNIT SQ ONE (12:45)
[2017-10-12] MEDS ORDERED: dexameTHASONE 4 MG/ML 1ML VIAL (J1100) As Ordered ONE (13:05)
[2017-10-12] MEDS ORDERED: CONRAY-60 60% 50ML VIAL (Q9961) As Ordered ONE (14:41)
[2017-10-12] MEDS ORDERED: KETOROLAC 60 MG/2 ML VIAL (J1885) As Ordered ONE (15:03)
--- NOTE | 2017-10-12 15:20 | REP ---
Retrograde pyelogram: Three views. History: Cystogram with retrograde. 12 seconds of fluoroscopy time is reported. Findings: A sequence of three last image hold fluoroscopic spot radiographs of the abdomen document ureteral cannulation, contrast injection and double pigtail ureteral stenting. No laterality markers. Signed by Donis Kuhn MD 10/12/2017 04:14 P
[2017-10-12] MEDS ORDERED: HumaLOG INSULIN (NovoLOG) PER UNIT SC SCH ×3 (15:30→21:00)
[2017-10-12] MEDS ORDERED: PERCOCET 5MG/325MG TAB PO PRN (15:30)
[2017-10-12] MEDS ORDERED: LR 1,000 ML IV SCH (15:30)
[2017-10-12] MEDS ORDERED: ONDANSETRON 4MG/2ML VIAL (J2405) IV PRN (15:30)
[2017-10-12] MEDS ORDERED: ACETAMINOPHEN TAB 650MG DOSE (2X325MG) PO PRN (15:30)
[2017-10-12] MEDS ORDERED: fentaNYL 100 MCG/2 ML INJECTION (J3010) IV PRN (15:30)
[2017-10-12 17:15] VITALS: BP 119/76
[2017-10-12 17:45] VITALS: BP 136/84
[2017-10-12 18:45] VITALS: BP 112/69
[2017-10-12 19:45] VITALS: BP 114/69
[2017-10-12] MEDS ORDERED: GLUCOSE 4 GM CHEW TABLET PO PRN (20:00)
[2017-10-12] MEDS ORDERED: DEXTROSE 50% 50 ML SYRINGE IV PRN (20:00)
[2017-10-12] MEDS ORDERED: GLUCAGON FOR INJ 1 MG VIAL (J1610) SC PRN (20:00)
[2017-10-12 20:45] VITALS: BP 117/70
[2017-10-12 21:45] VITALS: BP 113/84
[2017-10-13 02:00] VITALS: BP 118/72
[2017-10-13 06:00] VITALS: BP 141/88
[2017-10-13] MEDS: HumaLOG INSULIN (NovoLOG) PER UNIT SC SCH ×2 (07:02→12:06)
--- NOTE | 2017-10-13 08:21 | IPNPDOC ---
Assessment/Plan Date Seen The patient was seen on 10/13/17. Patient Summary This is a 57 y/o M POD 1 s/p cysto, left ureteroscopy w/ laser lithotripsy and basket extraction of stones, and left ureteral stent exchange, admitted postop for GASTON monitoring. He feels well. He was still on nasal cannula when seen this morning. Plan/VTE VTE Prophylaxis Ordered?: Yes VTE Exclusion Mechanical Proph: N/A:VTE Prophy Ordered Plan - wean O2 as tolerated - continue home diabetes medication - plan for discharge home once weaned off of O2 and glucose is better controlled Subjective Review oF Systems Chief Complaint The patient is a 57-year-old male admitted with a reason for visit of Nephrolithiasis. Events since Last Encounter The patient was admitted to the hospital postop for GASTON monitoring b/c as he kept desaturating while in the PACU. He has been well o/n. Denies SOB. No chest pain. Denies flank or abdominal pain. No fevers or chills. Objective Physical Examination General Exam: Alert, Cooperative, No Acute Distress Skin Exam: Nl turgor and temperature Neuro Exam: Normal Speech Psych Exam: Mental status NL, Mood NL Vital Signs/I&O Vital Signs Date Time Temp Pulse Resp B/P (MAP) Pulse Ox O2 Delivery O2 Flow Rate FiO2 10/13/17 06:00 97.3 68 11 141/88 (105) 99 Nasal Cannula 2.0 Laboratory Data Labs 24H Laboratory Tests 2 10/12/17 10:18: Bedside Glucose (Misc Panel) 368H 10/12/17 12:30: Bedside Glucose (Misc Panel) 360H 10/12/17 14:00: 10/12/17 15:13: Bedside Glucose (Misc Panel) 243H 10/12/17 16:14: Bedside Glucose (Misc Panel) 238H FSBS Laboratory Tests Test 10/12/17 10:18 10/12/17 12:30 10/12/17 15:13 10/12/17 16:14 Range/Units Bedside Glucose (Misc Panel) 368 360 243 238 70-105 MG/DL DAMEON SHELLEY MD Oct 13, 2017 08:21
[2017-10-13] MEDS ORDERED: LEVEMIR (INSULIN DETEMIR) 1 UNITS/0.01ML SC SCH (09:00)
[2017-10-13 10:00] VITALS: BP 133/65
--- NOTE | 2017-10-13 10:53 | RO ---
DATE OF PROCEDURE: 10/12/2017 PREPROCEDURE DIAGNOSIS: Left kidney stones. POSTPROCEDURE DIAGNOSIS: Left kidney stones. PROCEDURE: Cystoscopy, left ureteroscopy with laser lithotripsy and basket extraction of stones, left retrograde pyelogram with intraoperative interpretation of images, left ureteral stent exchange. SURGEON: Lowell Doe MD EVENING ANCHOR: None. ANESTHESIA: General. OPERATIVE INDICATIONS: This is a 57-year-old male who was seen in the hospital approximately a month ago for concern for sepsis due to urinary tract infection. He was also found to have an obstructing 1.5 cm left kidney stone at that time. A ureteral stent was placed at that time, and his infection was treated. He is brought back to the operating room today to treat his stone. DESCRIPTION OF PROCEDURE: The patient was brought to the operating room, and general anesthesia was induced. Culture-specific antibiotics were infused. He was then placed in the dorsal lithotomy position and prepped and draped in the usual sterile fashion. A rigid cystoscope was inserted into the urethral meatus and advanced into the bladder. Once within the bladder, a wire was advanced up the left collecting system along side the previously-placed stent. The stent was then removed, leaving the wire in place. I then advanced an access sheath over the wire up into the left collecting system. This wire was then secured to the drape to serve as a safety wire. I then went in the access sheath with the flexible ureteroscope; and at the area of the ureteropelvic junction, a 1.5 cm stone was seen. The stone was then fragmented into several smaller pieces, using a 200 micron laser fiber. All of the larger fragments were then removed with a basket. Any remaining pieces that were left inside the kidney were small enough to pass. After I confirmed that all the larger stone fragments had been removed, a retrograde pyelogram was performed, and it was negative for hydronephrosis or extravasation. At this point, I withdrew the ureteral access sheath, along with the ureteroscope, and no large stones were seen within the ureter. I then utilized the previously-placed wire to advance a 7-Danish x 22-32 cm double J ureteral stent up into the left collecting system. The wire was then removed, and there were adequate curls of the stent in the left renal pelvis and in the bladder. The bladder was then emptied of all fluid, and this marked the conclusion of the procedure. The patient was then taken out of the dorsal lithotomy position, awakened from anesthesia, and transported to the recovery room in stable condition. ESTIMATED BLOOD LOSS: Minimal. COMPLICATIONS: None. SPECIMENS: Kidney stone fragments. PLAN: The patient will followup in the clinic in a few weeks for stent removal. I will get a kidneys, ureters, bladder (KUB) X-ray prior. NAREN
== END 2017-10-13 15:15 | disposition home or self-care (01) ==
LOC: M SDC 09:33 → M MS5PR 17:10 → M SDC 10-13 15:15
PROVIDERS: ATTEND Urology
DX: N20.0 Calculus of kidney (principal); I25.10 Atherosclerotic heart disease of native coronary artery without angina pectoris; I25.2 Old myocardial infarction; I11.0 Hypertensive heart disease with heart failure; E78.5 Hyperlipidemia, unspecified; E10.9 Type 1 diabetes mellitus without complications; E03.9 Hypothyroidism, unspecified; F79 Unspecified intellectual disabilities; R06.2 Wheezing; G47.9 Sleep disorder, unspecified; E66.01 Morbid (severe) obesity due to excess calories; Z79.899 Other long term (current) drug therapy; Z79.82 Long term (current) use of aspirin; Z79.84 Long term (current) use of oral hypoglycemic drugs; Z95.0 Presence of cardiac pacemaker; Z95.810 Presence of automatic (implantable) cardiac defibrillator; Z72.0 Tobacco use

== ENCOUNTER → 2017-11-01 | Outpatient (CLI) | payer MEDICARE, OTHER | LOC: M WUC 12:46 | DX: N20.1 Calculus of ureter (principal) | CPT/HCPCS: 74018 ==

== ENCOUNTER → 2018-05-24 | Outpatient (REF) | payer MEDICARE, OTHER ==
[2018-05-24 18:19] LABS: HEMATOCRIT 40.3 % (42.0-52.0); HEMOGLOBIN 13.2 g/dl (13.5-17.5); MEAN CORPUSCULAR HGB CONC 32.8 g/dl (32.0-36.5); MEAN CORPUSCULAR VOLUME 91.6 fl (80.0-96.0); PLATELET COUNT, AUTOMATED 209 10^3/uL (150-450); RED CELL DISTRIBUTION WIDTH 12.7 % (11.5-14.5); WHITE BLOOD COUNT 8.9 10^3/uL (4.0-10.0)
[2018-05-24 18:40] LABS: ANION GAP 12 MEQ/L (8-16); BLOOD UREA NITROGEN 26 MG/DL (7-18); CALCIUM LEVEL 8.9 MG/DL (8.5-10.1); CARBON DIOXIDE LEVEL 27 MEQ/L (21-32); CHLORIDE LEVEL 98 MEQ/L (98-107); CREATININE FOR GFR 1.36 MG/DL (0.70-1.30); GLOMERULAR FILTRATION RATE 57.1 (>56); GLUCOSE, FASTING 372 MG/DL (70-100); POTASSIUM SERUM 4.5 MEQ/L (3.5-5.1); SODIUM LEVEL 137 MEQ/L (136-145)
== END ==
LOC: M LABDRWCV 17:16
DX: I25.5 Ischemic cardiomyopathy (principal)
CPT/HCPCS: 80048

== ENCOUNTER → 2018-08-05 | Outpatient (REF) | payer MEDICARE, OTHER ==
[2018-08-05 17:16] LABS: BASO % 0.4 % (0.0-1.0); EOS # 0.2 10^3/uL (0.0-0.50); EOS % 2.5 % (0.0-3.0); HEMATOCRIT 42.9 % (42.0-52.0); HEMOGLOBIN 14.4 g/dl (13.5-17.5); IMMATURE GRANULOCYTE % 0.3 % (0-3.0); LYMPH # 2.3 10^3/uL (1.5-4.5); LYMPH % 31.5 % (24.0-44.0); MEAN CORPUSCULAR HEMOGLOBIN 30.4 pg (27.0-33.0); MEAN CORPUSCULAR HGB CONC 33.6 g/dl (32.0-36.5); MEAN CORPUSCULAR VOLUME 90.7 fl (80.0-96.0); MONO # 0.6 10^3/uL (0.0-0.8); MONO % 8.8 % (0.0-5.0); NEUTROPHILS # 4.1 10^3/uL (1.8-7.7); NEUTROPHILS % 56.5 % (36.0-66.0); PLATELET COUNT, AUTOMATED 164 10^3/uL (150-450); RED BLOOD COUNT 4.73 10^6/uL (4.30-6.10); RED CELL DISTRIBUTION WIDTH 12.1 % (11.5-14.5); WHITE BLOOD COUNT 7.3 10^3/uL (4.0-10.0)
[2018-08-05 17:25] LABS: ESTIMATED AVERAGE GLUCOSE 266 MG/DL (60-110); HEMOGLOBIN A1c 10.9 %
[2018-08-05 17:28] LABS: ALBUMIN 3.8 GM/DL (3.2-5.2); ALKALINE PHOSPHATASE 107 U/L (45-117); ALT/SGPT 61 U/L (12-78); ANION GAP 11 MEQ/L (8-16); AST/SGOT 31 U/L (7-37); BILIRUBIN,TOTAL 0.4 MG/DL (0.2-1.0); BLOOD UREA NITROGEN 30 MG/DL (7-18); CALCIUM LEVEL 8.8 MG/DL (8.5-10.1); CARBON DIOXIDE LEVEL 25 MEQ/L (21-32); CHLORIDE LEVEL 102 MEQ/L (98-107); CHOLESTEROL LEVEL 171 MG/DL (<200); CHOLESTEROL RISK RATIO 4.885 (<5); CREATININE FOR GFR 1.41 MG/DL (0.70-1.30); FREE T4 1.21 NG/DL (0.76-1.46); GLOMERULAR FILTRATION RATE 54.8 (>56); GLUCOSE, FASTING 331 MG/DL (70-100); HDL CHOLESTEROL 35 MG/DL (>40); LDL CHOLESTEROL 69 MG/DL (<100); NON-HDL-C 136 MG/DL; POTASSIUM SERUM 4.5 MEQ/L (3.5-5.1); PSA SCREENING 0.26 NG/ML (< 4.0); SODIUM LEVEL 138 MEQ/L (136-145); TOTAL PROTEIN 7.6 GM/DL (6.4-8.2); TRIGLYCERIDES LEVEL 337 MG/DL (<150)
[2018-08-05 17:57] LABS: MAU/CREAT RATIO 1388.4 MCG/MG (0.0-30.0)
== END ==
LOC: M SFHCCAPE 08:16
DX: Z12.5 Encounter for screening for malignant neoplasm of prostate (principal); E11.9 Type 2 diabetes mellitus without complications
CPT/HCPCS: 84443

== ENCOUNTER → 2019-01-20 | Outpatient (REF) | payer MEDICARE, OTHER ==
[~2019-01-20] MED LIST changes: -/ATOR40TA PO; +ASPI-255 PO; -ASPI325T24 PO; +KLOR10TA76 PO; +LIPI1TAB2 PO; +LISI-1046 PO; -LISI2.5T3 PO; +METO-745; -POTA10CA PO; -TOPR100T; +[UNRECOGNIZED DRUG - REMARK] PO
[2019-01-20 17:18] LABS: BASO # 0.1 10^3/uL (0.0-0.2); BASO % 0.7 % (0.0-1.0); EOS # 0.3 10^3/uL (0.0-0.50); EOS % 3.8 % (0.0-3.0); HEMATOCRIT 44.4 % (42.0-52.0); HEMOGLOBIN 14.7 g/dl (13.5-17.5); LYMPH % 33.8 % (24.0-44.0); MEAN CORPUSCULAR HEMOGLOBIN 30.4 pg (27.0-33.0); MEAN CORPUSCULAR HGB CONC 33.1 g/dl (32.0-36.5); MEAN CORPUSCULAR VOLUME 91.7 fl (80.0-96.0); MONO # 0.8 10^3/uL (0.0-0.8); NEUTROPHILS # 4.6 10^3/uL (1.8-7.7); NEUTROPHILS % 52.4 % (36.0-66.0); PLATELET COUNT, AUTOMATED 190 10^3/uL (150-450); RED BLOOD COUNT 4.84 10^6/uL (4.30-6.10); WHITE BLOOD COUNT 8.8 10^3/uL (4.0-10.0)
[2019-01-20 19:30] LABS: ERYTHROCYTE SEDIMENTATION RATE 13 mm/hr (0-20)
== END ==
LOC: M LABDRWCV 16:18
PROVIDERS: ATTEND Ophthalmology
DX: H34.10 Central retinal artery occlusion, unspecified eye (principal); E78.5 Hyperlipidemia, unspecified; E11.9 Type 2 diabetes mellitus without complications; E03.9 Hypothyroidism, unspecified

== ENCOUNTER → 2019-04-27 | Outpatient (REF) | payer MEDICARE, OTHER ==
[2019-04-27 17:28] LABS: ALBUMIN 3.6 GM/DL (3.2-5.2); ALT/SGPT 46 U/L (12-78); BILIRUBIN,TOTAL 0.3 MG/DL (0.2-1.0); BLOOD UREA NITROGEN 26 MG/DL (7-18); CALCIUM LEVEL 9.3 MG/DL (8.8-10.2); CARBON DIOXIDE LEVEL 24 MEQ/L (21-32); CHLORIDE LEVEL 98 MEQ/L (98-107); CHOLESTEROL LEVEL 200 MG/DL (<200); CHOLESTEROL RISK RATIO 6.451 (<5); CREATININE FOR GFR 1.43 MG/DL (0.70-1.30); FREE T4 1.16 NG/DL (0.76-1.46); GLOMERULAR FILTRATION RATE 53.7 (>49); GLUCOSE, FASTING 309 MG/DL (70-100); HDL CHOLESTEROL 31 MG/DL (>40); NON-HDL-C 169 MG/DL; POTASSIUM SERUM 4.6 MEQ/L (3.5-5.1); SODIUM LEVEL 134 MEQ/L (136-145); TOTAL PROTEIN 7.6 GM/DL (6.4-8.2); TRIGLYCERIDES LEVEL 735 MG/DL (<150)
[2019-04-27 18:18] LABS: MAU/CREAT RATIO 994.4 MCG/MG (0.0-30.0)
[2019-04-27 18:57] LABS: HEMOGLOBIN A1c 13.3 %
== END ==
LOC: M SFHCCAPE 07:40
PROVIDERS: ATTEND Physician Assistant
DX: E11.9 Type 2 diabetes mellitus without complications (principal); E03.9 Hypothyroidism, unspecified; E78.5 Hyperlipidemia, unspecified

== ENCOUNTER 2019-08-10 18:59 | Emergency (ER) | payer MEDICARE, OTHER ==
[~2019-08-10] VITALS: Ht 175.3 cm; Wt 95.5 kg
[2019-08-10] MEDS ORDERED: NS 1,000 ML IV ONE (19:30)
[2019-08-10 20:31] LABS: BASO % 0.4 % (0.0-1.0); EOS # 0.2 10^3/uL (0.0-0.5); EOS % 1.5 % (0.0-3.0); HEMATOCRIT 38.9 % (42.0-52.0); HEMOGLOBIN 13.2 g/dl (13.5-17.5); LYMPH # 2.1 10^3/uL (1.5-5.0); LYMPH % 21.4 % (24.0-44.0); MEAN CORPUSCULAR HEMOGLOBIN 30.6 pg (27.0-33.0); MEAN CORPUSCULAR HGB CONC 33.9 g/dl (32.0-36.5); MONO # 0.7 10^3/uL (0.0-0.8); MONO % 6.8 % (0.0-5.0); NEUTROPHILS # 6.9 10^3/uL (1.5-8.5); NEUTROPHILS % 69.4 % (36.0-66.0); PLATELET COUNT, AUTOMATED 211 10^3/uL (150-450); RED BLOOD COUNT 4.32 10^6/uL (4.30-6.10)
[2019-08-10 20:55] LABS: ERYTHROCYTE SEDIMENTATION RATE 67 mm/hr (0-20)
[2019-08-10 21:11] LABS: ALBUMIN 2.7 GM/DL (3.2-5.2); ALT/SGPT 26 U/L (12-78); BILIRUBIN,DIRECT < 0.1 MG/DL (0.0-0.2); BILIRUBIN,TOTAL 0.2 MG/DL (0.2-1.0); BLOOD UREA NITROGEN 26 MG/DL (7-18); C REACTIVE PROTEIN QUANTITATIV 2.13 MG/DL (0.00-0.30); CALCIUM LEVEL 8.6 MG/DL (8.8-10.2); CARBON DIOXIDE LEVEL 27 MEQ/L (21-32); CHLORIDE LEVEL 102 MEQ/L (98-107); CREATININE FOR GFR 1.34 MG/DL (0.70-1.30); GLOMERULAR FILTRATION RATE 57.9 (>49); GLUCOSE, FASTING 353 MG/DL (70-100); POTASSIUM SERUM 4.3 MEQ/L (3.5-5.1); SODIUM LEVEL 135 MEQ/L (136-145); TOTAL PROTEIN 6.4 GM/DL (6.4-8.2)
[2019-08-10] MEDS ORDERED: BACTRIM 160MG/800MG DS TAB PO ONE (22:15)
[2019-08-10] MEDS ORDERED: cefTRIAXone SOD 1 GM in D5W MINI-BAG PLUS 50 ML IV ONE (22:15)
[2019-08-10] MEDS ORDERED: KEFL500C17 PO (22:18)
[2019-08-10] MEDS ORDERED: BACT800T5 PO (22:18)
[2019-08-10 22:59] VITALS: BP 127/80
--- NOTE | 2019-08-11 08:35 | REP ---
Right forefoot: Four views. History: Cellulitis. Open ulcer. Findings: Four views of the right forefoot show mild osteoarthritis at the first MTP joint. There is mild dorsal soft tissue swelling. No soft tissue gas is seen. No opaque foreign body is noted. No fracture or bony destructive lesion is appreciated. Electronically Signed by Donis Kuhn MD 08/11/2019 08:26 A
== END 2019-08-10 23:07 | disposition home or self-care (01) ==
LOC: M ED 18:59
DX: E11.621 Type 2 diabetes mellitus with foot ulcer (principal); L03.031 Cellulitis of right toe; I50.9 Heart failure, unspecified; I10 Essential (primary) hypertension; E78.5 Hyperlipidemia, unspecified; E03.9 Hypothyroidism, unspecified; G93.1 Anoxic brain damage, not elsewhere classified; Z95.1 Presence of aortocoronary bypass graft; F17.200 Nicotine dependence, unspecified, uncomplicated; Z79.82 Long term (current) use of aspirin; Z79.4 Long term (current) use of insulin; Z79.899 Other long term (current) drug therapy
CPT/HCPCS: 73660; 80047; 80048; 80076; 83605; 85025; 85652; 86140; 87040; 87070; 87205; 96365; 99284; J0696

== ENCOUNTER → 2019-09-06 | Outpatient (REF) | payer MEDICARE, OTHER ==
[~2019-09-06] MED LIST changes: +KEFL500C17 PO
[2019-09-06 16:15] LABS: BASO # 0.1 10^3/uL (0.0-0.2); BASO % 0.6 % (0.0-1.0); EOS # 0.5 10^3/uL (0.0-0.5); EOS % 4.4 % (0.0-3.0); HEMOGLOBIN 13.9 g/dl (13.5-17.5); LYMPH # 4.1 10^3/uL (1.5-5.0); LYMPH % 34.3 % (24.0-44.0); MEAN CORPUSCULAR HEMOGLOBIN 29.4 pg (27.0-33.0); MEAN CORPUSCULAR HGB CONC 32.3 g/dl (32.0-36.5); MEAN CORPUSCULAR VOLUME 90.9 fl (80.0-96.0); MONO # 1.1 10^3/uL (0.0-0.8); MONO % 9.2 % (0.0-5.0); NEUTROPHILS # 6.1 10^3/uL (1.5-8.5); NEUTROPHILS % 51.2 % (36.0-66.0); PLATELET COUNT, AUTOMATED 189 10^3/uL (150-450); RED BLOOD COUNT 4.73 10^6/uL (4.30-6.10); WHITE BLOOD COUNT 11.9 10^3/uL (4.0-10.0)
[2019-09-06 16:26] LABS: ALBUMIN 3.4 GM/DL (3.2-5.2); BILIRUBIN,TOTAL 0.3 MG/DL (0.2-1.0); CALCIUM LEVEL 9.2 MG/DL (8.8-10.2); CHOLESTEROL RISK RATIO 4.4 (<5); CREATININE FOR GFR 1.35 MG/DL (0.70-1.30); FREE T4 1.01 NG/DL (0.76-1.46); GLOMERULAR FILTRATION RATE 57.4 (>49); POTASSIUM SERUM 4.3 MEQ/L (3.5-5.1); THYROID STIMULATING HORMONE 4.18 uIU/ML (0.358-3.740); TOTAL PROTEIN 7.6 GM/DL (6.4-8.2)
[2019-09-06 16:30] LABS: HEMOGLOBIN A1c 11.5 %
[2019-09-06 17:08] LABS: CREATININE, URINE 65.7 MG/DL; MAU/CREAT RATIO 1188.7 MCG/MG (0.0-30.0)
== END ==
LOC: M SFHCCAPE 08:40
PROVIDERS: ATTEND Physician Assistant
DX: E11.69 Type 2 diabetes mellitus with other specified complication (principal); E78.5 Hyperlipidemia, unspecified; E03.9 Hypothyroidism, unspecified

== ENCOUNTER → 2019-11-10 | Outpatient (POV) | payer MEDICARE, OTHER ==
[~2019-11-10] VITALS: Ht 177.8 cm; Wt 109.1 kg
[2019-11-10 15:39] VITALS: BP 142/87
--- NOTE | 2019-11-11 10:54 | IRCOV ---
[facility] IR Consult Office Visit IR Consult Office Visit DATE: Nov 10, 2019 REASON FOR CONSULTATION/CHIEF COMPLAINT: Nonhealing right foot ulcer. HISTORY OF PRESENT ILLNESS: 59-year-old male with coronary artery disease, diabetes, hypertension and hyperlipidemia presents with nonhealing right foot ulcer. Ulcer located on the plantar aspect of the right great toe. Patient states this is ongoing for months. Patient denies pain in the legs. Denies, intermittent claudication or rest pain. Patient suffers with numbness and tingling in the legs from diabetic neuropathy. Denies chest pain or shortness of breath. ALLERGIES: Please see below. HOME MEDICATIONS: Please see below. PAST MEDICAL HISTORY: SC 2010 Pacemaker defibrillator Diabetes Hypertension Hyperlipidemia Morbid obesity PAST SURGICAL HISTORY: Cardiac catheterization 2007 CABG 2007 ICD implant 2007 ICD removal for infection ICD reimplanted 2008 Left ureteral stent 2016 FAMILY HISTORY: Noncontributory. SOCIAL HISTORY: Smoker. Now on E cigarettes. Previously 4 packs a day. No alcohol or drugs. REVIEW OF SYSTEMS: Otherwise negative. PHYSICAL EXAMINATION: VITAL SIGNS: Please see below. GENERAL APPEARANCE: Appears well. Comfortable at rest. HEENT: No scleral icterus. RESPIRATORY: Little air movement. CARDIOVASCULAR: Normal rate. ABDOMEN: Soft nontender. EXTREMITIES: Right lower extremity: Hairless. Warm to touch. Right foot bandaged. Femoral pulse 2+ popliteal pulse + DP PT nonpalpable Left lower extremity: Hairless, warm to touch. Femoral pulse 2+ popliteal + DP PT nonpalpable. Mild edema. NEUROLOGICAL: Alert and oriented. PSYCHIATRIC: Appropriate to circumstance. LABORATORY DATA: 09/06/2019 hemoglobin 13.9 hematocrit 43 WBC 11.9 platelets 189 sodium 135 potassium 4.3 BUN 20 creatinine 1.35 Imaging: I personally reviewed the ultrasound of the right lower extremity from September 2019. Atherosclerotic disease in the SFA, popliteal artery and below knee. Monophasic waveform groin down. ASSESSMENT/PLAN: 59-year-old male smoker with coronary artery disease presents with nonhealing right lower extremity wound. I agree patient would benefit from right leg angiogram and/or intervention at the same time as appropriate. We have scheduled the patient for this procedure. I spent 30 minutes in consultation with the patient. Thank you for this referral. Cc Alexandra Gomez Allergies Coded Allergies: No Known Allergies (Unverified , 08/10/19) Home Medications Scheduled Amiodarone HCl (Amiodarone HCl), 200 MG PO ASDIRECTED, (Reported) Aspirin (Aspirin EC), 325 MG PO QPM, (Reported) Atorvastatin Calcium (Lipitor), 40 MG PO QPM, (Reported) Calcium Carbonate/Vitamin D3 (Calcium 500-Vit D3 200 Caplet), 1 TAB PO QPM, (Reported) Cephalexin (Keflex), 500 MG PO Q6H Insulin Glargine (Lantus), 60 UNITS INJ QPM, (Reported) Levothyroxine Sodium (Synthroid), 75 MCG PO QPM, (Reported) Lisinopril (Lisinopril), 2.5 MG PO QPM, (Reported) Metformin HCl (Glucophage), 1,000 MG PO QPM, (Reported) Metoprolol Succinate (Metoprolol Succinate), 50 MG PO QPM, (Reported) Multivitamins (Theragran), 1 TAB PO QPM, (Reported) Sitagliptin Phosphate (Januvia), 100 MG PO QPM, (Reported) Spironolactone (Aldactone), 25 MG PO QPM, (Reported) Sulfamethoxazole/Trimethoprim (Bactrim Ds Tablet), 1 TAB PO Q12H VS, I&O, 24H, Fishbone Vital Signs/I&O Vital Signs Date Time Temp Pulse Resp B/P (MAP) Pulse Ox O2 Delivery O2 Flow Rate FiO2 11/10/19 15:39 97.3 73 20 142/87 (105) 93 Room Air DEBRA ROGERS MD Nov 11, 2019 10:54
== END ==
LOC: M IRPOV 15:32
PROVIDERS: ATTEND Radiology Diagnostic Radiology
DX: I70.235 Atherosclerosis of native arteries of right leg with ulceration of other part of foot (principal); E11.621 Type 2 diabetes mellitus with foot ulcer; L97.519 Non-pressure chronic ulcer of other part of right foot with unspecified severity; E11.40 Type 2 diabetes mellitus with diabetic neuropathy, unspecified; I25.10 Atherosclerotic heart disease of native coronary artery without angina pectoris; I10 Essential (primary) hypertension; E78.5 Hyperlipidemia, unspecified; E66.01 Morbid (severe) obesity due to excess calories; F17.290 Nicotine dependence, other tobacco product, uncomplicated; Z95.5 Presence of coronary angioplasty implant and graft

== ENCOUNTER → 2019-11-24 | Outpatient (CLI) | payer MEDICARE, OTHER ==
[~2019-11-24] MED LIST changes: +CLOPIDOGREL 75 MG TAB As Ordered ONE; +CLOPIDOGREL 75 MG TAB PO ONE; +HEPARIN 1,000 UNITS/ML 10ML VIAL (FOR RADIOLOGY& DIALYSIS ONLY)(J1644-10) As Ordered ONE; +ISOVUE-300 61% 50ML VIAL (Q9967) As Ordered ONE; +LIDOCAINE 1% MDV 20ML VIAL As Ordered ONE; +MIDAZOLAM INJ 2 MG/2 ML VIAL (J2250) As Ordered ONE; +ONDANSETRON 4MG/2ML VIAL (J2405) IV PRN; +diphenhydrAMINE INJ 50MG/ML VIAL (J1200) As Ordered ONE; +fentaNYL 100 MCG/2 ML INJECTION (J3010) As Ordered ONE
[2019-11-24 09:35] LABS: HEMATOCRIT 43.3 % (42.0-52.0); HEMOGLOBIN 14.2 g/dl (13.5-17.5); MEAN CORPUSCULAR HEMOGLOBIN 29.8 pg (27.0-33.0); MEAN CORPUSCULAR HGB CONC 32.8 g/dl (32.0-36.5); PLATELET COUNT, AUTOMATED 187 10^3/uL (150-450); RED BLOOD COUNT 4.76 10^6/uL (4.30-6.10); WHITE BLOOD COUNT 8.6 10^3/uL (4.0-10.0)
[2019-11-24 09:42] LABS: BLOOD UREA NITROGEN 23 MG/DL (7-18); CALCIUM LEVEL 9.1 MG/DL (8.8-10.2); CARBON DIOXIDE LEVEL 29 MEQ/L (21-32); CHLORIDE LEVEL 102 MEQ/L (98-107); CREATININE FOR GFR 1.29 MG/DL (0.70-1.30); GLOMERULAR FILTRATION RATE > 60.0 (>49); GLUCOSE, FASTING 269 MG/DL (70-100); POTASSIUM SERUM 4.7 MEQ/L (3.5-5.1); SODIUM LEVEL 137 MEQ/L (136-145)
--- NOTE | 2019-11-24 12:15 | IRHP ---
[facility] IR Pre-Procedure H & P General Date of Service: Nov 24, 2019 Procedure: Same Day Surgery Interval History and Physical I have seen the patient and reviewed last H & P performed within 30 days. There is no significant interval change. History of Present Illness Chief Complaint The patient is a 59-year-old male admitted with a reason for visit of PAD. PRE-PROCEDURE DIAGNOSIS: PAD HEART: normal rate LUNGS: normal breathing at rest. ASA Classification ASA Classification: III-Severe systemic dis. Mallampati Score: II NPO: Yes Problems with prior sedation: No Obstructive Sleep Apnea: No Plan moderate sedation Allergies Coded Allergies: No Known Allergies (Unverified , 08/10/19) Home Medications Scheduled Amiodarone HCl (Amiodarone HCl), 200 MG PO ASDIRECTED, (Reported) Aspirin (Aspirin EC), 325 MG PO QPM, (Reported) Atorvastatin Calcium (Lipitor), 40 MG PO QPM, (Reported) Calcium Carbonate/Vitamin D3 (Calcium 500-Vit D3 200 Caplet), 1 TAB PO QPM, (Reported) Insulin Glargine (Lantus), 60 UNITS INJ QPM, (Reported) Levothyroxine Sodium (Synthroid), 75 MCG PO QPM, (Reported) Lisinopril (Lisinopril), 2.5 MG PO QPM, (Reported) Metformin HCl (Glucophage), 1,000 MG PO QPM, (Reported) Metoprolol Succinate (Metoprolol Succinate), 50 MG PO QPM, (Reported) Multivitamins (Theragran), 1 TAB PO QPM, (Reported) Sitagliptin Phosphate (Januvia), 100 MG PO QPM, (Reported) Spironolactone (Aldactone), 25 MG PO QPM, (Reported) Discontinued Medications Cephalexin (Keflex), 500 MG PO Q6H Discontinued Reason: PCP discontinued med Sulfamethoxazole/Trimethoprim (Bactrim Ds Tablet), 1 TAB PO Q12H Discontinued Reason: PCP discontinued med VS, I&O, 24H, Tomy Vital Signs/I&O Vital Signs Date Time Temp Pulse Resp B/P (MAP) Pulse Ox O2 Delivery O2 Flow Rate FiO2 11/24/19 12:08 51 18 94 Room Air 11/24/19 11:35 2 11/24/19 08:50 98.0 Laboratory Data 24H LABS Laboratory Tests 2 11/24/19 08:50: Nucleated Red Blood Cells % (auto) 0.0, Anion Gap 6L, Glomerular Filtration Rate > 60.0, Calcium Level 9.1 CBC/BMP Laboratory Tests 11/24/19 08:50 DEBRA ROGERS MD Nov 24, 2019 12:15
--- NOTE | 2019-11-24 14:01 | POST-OPPD ---
Postoperative Procedure Note Date Of Procedure: Nov 24, 2019 Time Of Procedure: 14:00 PREOPERATIVE DIAGNOSIS: PAD POSTOPERATIVE DIAGNOSIS: PAD FINDINGS: right SFA atherosclerotic stenosis. good run off below knee into foot. patent AT, PT and peroneal. PROCEDURE: right sfa angioplasty SURGEON: lisa ANESTHESIA: mod sed ESTIMATED BLOOD LOSS: < 5 ml COMPLICATIONS: none POSTOPERATIVE CONDITION: stable DEBRA ROGERS MD Nov 24, 2019 14:01
[2019-11-24 16:15] VITALS: BP 121/70
--- NOTE | 2019-11-25 12:35 | REP ---
IR Right leg angiogram. IR Right superficial femoral artery angioplasty. IR sub selective catheterization of anterior tibial artery and arteriogram. IR sub selective catheterization of tibioperoneal trunk and arteriogram . IR sub selective catheterization of posterior tibial artery and arteriogram. IR ultrasound guided left femoral artery access. IR moderate sedation. Clinical Information: Right lower extremity non healing wounds. Physician: Dr Lovealce.Procedure: The patient was advised of the benefits, risks, and alternatives of the procedure and informed consent was obtained.A time out was performed with verification of the patient's name, MRN, site of procedure, and type of procedure to be performed. The patient was positioned in the supine position on the angiographic table. The site was prepped and draped in the usual sterile fashion.Moderate sedation was performed by the physician including the presence of an independent trained observer who assisted in monitoring the patient's level of consciousness and physiological status. Following the administration of Fentanyl and Versed, the physician spent 90 minutes of continuous hkti-md-[id number] time with the patient. A network contractor radiograph reveals no gross abnormality. The left femoral artery was accessed under ultrasound guidance with a micropuncture kit. A PacketVideo wire was advanced into the aorta. The micropuncture sheath was exchanged over the wire for a a 6-Algerian vascular sheath. A flush catheter was advanced over the wire and used to catheterize the abdominal aorta. A pelvic arteriogram was performed. This demonstrates patent right common iliac, external iliac and internal iliac arteries. A Glidewire was advanced through the flush catheter and under fluoroscopy guidance was used to gain up and over access into the right common iliac artery. The flush catheter was exchanged over the wire for a glide cath. The glide cath in conjunction with a Glidewire was used to catheterize the right common femoral artery. A right leg angiogram was performed from this location. This demonstrates patent right common femoral artery, superficial femoral artery and profunda femoris. There is atherosclerotic disease and multi segment greater than 50% luminal stenosis in the mid and distal superficial femoral artery. An angiogram further down the leg was performed and this demonstrates patent popliteal artery. A below-knee runoff arteriogram was performed but due to patient's involuntary leg movements, this was not diagnostic. Therefore, a micro catheter and micro wire were inserted through the diagnostic catheter and used to sub selectively catheterize the run off vessels. A micro catheter and micro wire were used to sub selectively catheterize the anterior tibial artery. An arteriogram was performed this demonstrates patent proximal and mid anterior tibial artery. A micro catheter and micro wire were then used to sub selectively catheterize the distal anterior tibial artery. An arteriogram was performed and this demonstrates patent distal anterior tibial artery and dorsalis pedis. The micro catheter and micro wire were retracted and used to sub selectively catheterize the posterior tibial artery. An arteriogram was performed and this demonstrates patent posterior tibial artery, proximal mid and distal coursing into the foot without stenosis or occlusion. The micro catheter micro wire were retracted and used to sub selectively catheterize the tibioperoneal trunk. An arteriogram was performed and this demonstrates patent peroneal and posterior tibial artery. The micro catheter and micro wire were removed. An 035 wire was advanced through the diagnostic catheter into the popliteal artery. The catheter was removed over the wire. A 6 x 200 mm Backus balloon was advanced over the wire under fluoroscopy guidance and positioned in the mid and distal superficial femoral artery. SFA angioplasty was performed. Heparin was administered. The balloon was deflated and removed over the wire. Post angioplasty arteriogram was performed and this demonstrates improved flow in the mid and distal superficial femoral artery. No vessel spasm, dissection or cutoff. Post angioplasty follow-up below-knee runoff was performed and this demonstrates patent below-knee runoff. No vessel spasm, injury or distal emboli. The catheter was removed. A 6-Algerian Mynx device was used to close the groin arteriotomy and the sheath was removed. Hemostasis achieved. A sterile dressing was applied to the site. Patient tolerated the procedure well and was transferred to PRU in stable condition. Complications: None. Estimated blood loss: Less than 5 ml. Impression: 1. Right leg angiogram demonstrates atherosclerotic disease with multi segment greater than 50% percent stenosis in the mid and distal superficial femoral artery. 2. Below-knee selective runoff arteriograms demonstrates patent anterior tibial, peroneal and posterior tibial arteries with good runoff into the foot. No occlusions or stenosis. 3. Successful superficial femoral artery angioplasty with improved flow. 4. Follow-up in IR clinic in 1 month and continue follow up with wound care. 5. Patient started on Plavix 75 mg in addition to aspirin 81. Advised on importance of smoking cessation, healthy diet and exercise. Thank you for this referral. cc Dr. Soliz. CC Nessa Gomez. Electronically Signed by Genesis Lovelace MD 11/25/2019 12:34 P
== END ==
LOC: M IRPRO 08:43
PROVIDERS: ATTEND Radiology Diagnostic Radiology
DX: I70.239 Atherosclerosis of native arteries of right leg with ulceration of unspecified site (principal)
CPT/HCPCS: 37224; 75710; 75774; 80048; 85027; 99152; 99153; C1725; C1760; C1769; C1887; C1894; J1644; J2250; J3010; Q9967

== ENCOUNTER → 2019-12-13 | Outpatient (REF) | payer MEDICARE, OTHER ==
[~2019-12-13] MED LIST changes: -CLOPIDOGREL 75 MG TAB As Ordered ONE; -CLOPIDOGREL 75 MG TAB PO ONE; -HEPARIN 1,000 UNITS/ML 10ML VIAL (FOR RADIOLOGY& DIALYSIS ONLY)(J1644-10) As Ordered ONE; -ISOVUE-300 61% 50ML VIAL (Q9967) As Ordered ONE; -LIDOCAINE 1% MDV 20ML VIAL As Ordered ONE; -MIDAZOLAM INJ 2 MG/2 ML VIAL (J2250) As Ordered ONE; -ONDANSETRON 4MG/2ML VIAL (J2405) IV PRN; -diphenhydrAMINE INJ 50MG/ML VIAL (J1200) As Ordered ONE; -fentaNYL 100 MCG/2 ML INJECTION (J3010) As Ordered ONE
[2019-12-13 17:10] LABS: BASO # 0.1 10^3/uL (0.0-0.2); BASO % 0.5 % (0.0-1.0); EOS # 0.4 10^3/uL (0.0-0.5); EOS % 3.9 % (0.0-3.0); HEMATOCRIT 45.8 % (42.0-52.0); HEMOGLOBIN 15.2 g/dl (13.5-17.5); LYMPH # 3.9 10^3/uL (1.5-5.0); LYMPH % 39.2 % (24.0-44.0); MEAN CORPUSCULAR HEMOGLOBIN 29.9 pg (27.0-33.0); MEAN CORPUSCULAR HGB CONC 33.2 g/dl (32.0-36.5); MEAN CORPUSCULAR VOLUME 90.2 fl (80.0-96.0); MONO # 0.8 10^3/uL (0.0-0.8); MONO % 7.8 % (0.0-5.0); NEUTROPHILS # 4.7 10^3/uL (1.5-8.5); NEUTROPHILS % 48.1 % (36.0-66.0); PLATELET COUNT, AUTOMATED 228 10^3/uL (150-450); RED BLOOD COUNT 5.08 10^6/uL (4.30-6.10); WHITE BLOOD COUNT 9.8 10^3/uL (4.0-10.0)
[2019-12-13 17:15] LABS: ALBUMIN 3.6 GM/DL (3.2-5.2); ALT/SGPT 33 U/L (12-78); BILIRUBIN,TOTAL 0.3 MG/DL (0.2-1.0); BLOOD UREA NITROGEN 34 MG/DL (7-18); CALCIUM LEVEL 9.8 MG/DL (8.8-10.2); CARBON DIOXIDE LEVEL 28 MEQ/L (21-32); CHLORIDE LEVEL 101 MEQ/L (98-107); CHOLESTEROL LEVEL 173 MG/DL (<200); CHOLESTEROL RISK RATIO 5.406 (<5); FREE T4 1.15 NG/DL (0.76-1.46); GLOMERULAR FILTRATION RATE 50.8 (>49); GLUCOSE, FASTING 267 MG/DL (70-100); HDL CHOLESTEROL 32 MG/DL (>40); NON-HDL-C 141 MG/DL; POTASSIUM SERUM 4.7 MEQ/L (3.5-5.1); SODIUM LEVEL 133 MEQ/L (136-145); TOTAL PROTEIN 7.4 GM/DL (6.4-8.2); TRIGLYCERIDES LEVEL 415 MG/DL (<150)
[2019-12-13 17:38] LABS: HEMOGLOBIN A1c 10.5 %
== END ==
LOC: M SFHCCAPE 08:52
PROVIDERS: ATTEND Physician Assistant
DX: E78.5 Hyperlipidemia, unspecified (principal); E03.9 Hypothyroidism, unspecified; E11.9 Type 2 diabetes mellitus without complications; Z12.5 Encounter for screening for malignant neoplasm of prostate
CPT/HCPCS: 36415; 80053; 80061; 83036; 84439; 84443; 85025; G0103

== ENCOUNTER → 2020-04-03 | Outpatient (REF) | payer MEDICARE, OTHER ==
[~2020-04-03] MED LIST changes: +AUGM875T28 PO; +CLOP75TA2 PO; +LEVO75TA4 PO; +LEVO88TA3; -LISI-1046 PO; +LISI10TA4 PO; +LISI2.5T2 PO; +TOPR100T PO
== END ==
LOC: M LAB REF 13:03
PROVIDERS: ATTEND Physician Assistant
DX: I96 Gangrene, not elsewhere classified (principal)

== ENCOUNTER → 2020-04-05 | Outpatient (CLI) | payer MEDICARE, OTHER ==
[~2020-04-05] MED LIST changes: -AUGM875T28 PO; +ISOVUE-300 61% 50ML VIAL As Ordered ONE; +LIDOCAINE 1% MDV 20ML VIAL As Ordered ONE; +MIDAZOLAM INJ 2MG/2ML VIAL (J2250 PER 1MG) As Ordered ONE; +PROMETHAZINE INJ 25 MG/ML VIAL (J2550) As Ordered ONE; +diphenhydrAMINE 50MG/ML VIAL (J1200) As Ordered ONE; +fentaNYL 100 MCG/2 ML INJECTION (J3010) As Ordered ONE
[2020-04-05 10:28] LABS: HEMATOCRIT 38.7 % (42.0-52.0); HEMOGLOBIN 12.8 g/dl (13.5-17.5); MEAN CORPUSCULAR HEMOGLOBIN 29.7 pg (27.0-33.0); MEAN CORPUSCULAR HGB CONC 33.1 g/dl (32.0-36.5); MEAN CORPUSCULAR VOLUME 89.8 fl (80.0-96.0); PLATELET COUNT, AUTOMATED 184 10^3/uL (150-450); RED BLOOD COUNT 4.31 10^6/uL (4.30-6.10); WHITE BLOOD COUNT 11.3 10^3/uL (4.0-10.0)
[2020-04-05 11:03] LABS: BLOOD UREA NITROGEN 22 MG/DL (7-18); CALCIUM LEVEL 8.2 MG/DL (8.8-10.2); CARBON DIOXIDE LEVEL 26 MEQ/L (21-32); CHLORIDE LEVEL 105 MEQ/L (98-107); CREATININE FOR GFR 1.05 MG/DL (0.70-1.30); GLOMERULAR FILTRATION RATE > 60.0 (>49); GLUCOSE, FASTING 280 MG/DL (70-100); POTASSIUM SERUM 4.4 MEQ/L (3.5-5.1); SODIUM LEVEL 138 MEQ/L (136-145)
--- NOTE | 2020-04-05 14:31 | POST-OPPD ---
Postoperative Procedure Note Date Of Procedure: Apr 05, 2020 Time Of Procedure: 14:29 PREOPERATIVE DIAGNOSIS: PAD POSTOPERATIVE DIAGNOSIS: same FINDINGS: multifocal SFA and popliteal stenosis PROCEDURE: angioplasty SFA and popliteal with improved flow SURGEON: lisa ANESTHESIA: mod sed ESTIMATED BLOOD LOSS: < 5 ml COMPLICATIONS: none POSTOPERATIVE CONDITION: stable DEBRA ROGERS MD Apr 05, 2020 14:31
[2020-04-05 20:04] VITALS: BP 120/71
--- NOTE | 2020-04-05 21:22 | ECGEPIP ---
[facility] Test Date: 2020-04-05 Pat Name: JUAN ALBERTO RIVERA Department: Room: - Gender: Male Tanning Wheel Filler: : 1960 Requested By: DEBRA ROGERS Order Number: [id number] Reading MD: Raghav Donato Measurements Intervals [place] Rate: 77 P: 67 MO: 225 QRS: 86 QRSD: 138 T: -71 QT: 421 QTc: 476 Interpretive Statements SINUS RHYTHM WITH FIRST DEGREE AV BLOCK Right bundle branch block Nonspecific ST-T wave abnormalities Prolonged QTc interval Similar to tracing done 08-17-17 Electronically Signed on 04-05-2020 21:22:54 EDT by Raghav Donato
--- NOTE | 2020-04-09 14:54 | REP ---
IR Left leg angiogram. IR Selective left iliac artery catheterization. IR Selective left common femoral artery catheterization. IR Left below-knee runoff. IR Left superficial femoral artery angioplasty. IR Moderate sedation. Clinical Information: Left lower extremity rest pain and toe gangrene status post amputation. Referred by wound care. Physician: Dr Lovelace.Procedure: The patient was advised of the benefits, risks, and alternatives of the procedure and informed consent was obtained.A time out was performed with verification of the patient's name, MRN, site of procedure, and type of procedure to be performed. The patient was positioned in the supine position on the angiographic table. The site was prepped and draped in the usual sterile fashion.Moderate sedation was performed by the physician including the presence of an independent trained observer who assisted in monitoring the patient's level of consciousness and physiological status. Following the administration of Fentanyl and Versed, the physician spent 120 minutes of continuous [id number]-lj-ufww time with the patient. A flavor tank tender radiograph reveals no gross abnormality. Ultrasound of the right groin demonstrates patent right common femoral artery. The right common femoral artery was accessed with a micropuncture kit under ultrasound guidance. A Positronics wire was advanced into the aorta. The micropuncture sheath was exchanged over the wire for a a 6-Faroese vascular sheath. A flush catheter was advanced over the wire and used to catheterize the abdominal aorta. A pelvic arteriogram was performed. This demonstrates patent left common iliac, external iliac and internal iliac arteries. A Glidewire was advanced through the flush catheter and under fluoroscopy guidance was used to gain up and over access into the left common iliac artery. The flush catheter was exchanged over the wire for a glide cath. The glide cath in conjunction with a Glidewire was used to catheterize the left common femoral artery. A left leg angiogram was performed from this location. This demonstrates multifocal stenosis greater than 50% within the proximal, mid and distal superficial femoral artery. Calcification in the ureña of the mid and distal superficial femoral artery. Angiography further down the leg was performed and this demonstrates patent popliteal artery with focal segmental stenosis. Patent proximal anterior tibial, tibioperoneal trunk, peroneal and posterior tibial artery. A below-knee runoff arteriogram was performed and this was limited by significant patient motion and inability to keep his leg straight. After multiple attempts we see 3 vessel runoff to the left foot. Complete pedal loop with microvascular changes in the foot. Branches supplying the calcaneus and plantar branches and good opacification of dorsalis pedis. A 6 x 200 mm [place] balloon was advanced over the wire, under fluoroscopy guidance and positioned in the distal superficial femoral artery and popliteal artery. Angioplasty of the distal superficial femoral artery and popliteal artery was performed. Heparin was administered. The balloon was then deflated and repositioned in the proximal and mid superficial femoral artery. Angioplasty of the proximal and mid superficial femoral artery was performed. The balloon was deflated and removed over the wire. A completion angiogram was performed and this demonstrates improved flow in the superficial femoral artery and popliteal artery. No vessel cutoff, extravasation or distal emboli. Below-knee completion runoff angiography was performed and this demonstrates good continuous runoff to the left foot with robust dorsalis pedis as well as posterior plantar and calcaneal branches filling. There is microvascular disease in the foot. Catheter, wire and sheath were removed. A 6-Faroese Mynx device was used to close the right groin arteriotomy and hemostasis achieved. A sterile dressing was applied to the site. Patient tolerated the procedure well and was transferred to PRU in stable condition. Complications: None. Estimated blood loss: Less than 5 ml. Impression: 1. Left leg angiogram demonstrates multi focal segmental stenosis in the proximal, mid and distal superficial femoral artery and focal stenosis in the popliteal artery 2. Successful angioplasty of the superficial femoral artery and popliteal artery with improved flow. 3. Below-knee runoff arteriogram demonstrates good runoff vasculature to the left foot with microvascular changes within the left foot. Advice daily aspirin and Plavix. Thank you for this referral. Cc Nessa Liao Electronically Signed by Genesis Lovelace MD 04/09/2020 02:52 P
== END ==
LOC: M IRPRO 09:50
PROVIDERS: ATTEND Radiology Diagnostic Radiology
DX: I70.222 Atherosclerosis of native arteries of extremities with rest pain, left leg (principal); I70.262 Atherosclerosis of native arteries of extremities with gangrene, left leg; Z79.4 Long term (current) use of insulin; Z79.82 Long term (current) use of aspirin; Z79.899 Other long term (current) drug therapy
CPT/HCPCS: 37224; 75710; 80048; 85027; 93005; 99152; 99153; C1725; C1760; C1769; C1887; C1894; J1200; J1644; J2250; J3010; Q9967

== ENCOUNTER 2020-04-10 16:59 | Inpatient (IN) | payer MEDICARE, OTHER ==
[~2020-04-10] VITALS: Ht 175.3 cm; Wt 104.5 kg
[~2020-04-10 16:59] MED LIST changes: -CLOP75TA2 PO; -ISOVUE-300 61% 50ML VIAL As Ordered ONE; -LEVO75TA4 PO; -LEVO88TA3; -LIDOCAINE 1% MDV 20ML VIAL As Ordered ONE; -LISI10TA4 PO; -MIDAZOLAM INJ 2MG/2ML VIAL (J2250 PER 1MG) As Ordered ONE; -PROMETHAZINE INJ 25 MG/ML VIAL (J2550) As Ordered ONE; -TOPR100T PO; -diphenhydrAMINE 50MG/ML VIAL (J1200) As Ordered ONE; -fentaNYL 100 MCG/2 ML INJECTION (J3010) As Ordered ONE
[2020-04-10] MEDS ORDERED: LEVO88TA3 (17:12)
[2020-04-10] MEDS ORDERED: CLOP75TA2 PO (17:12)
[2020-04-10] MEDS ORDERED: PIPERACILLIN/TAZOBACTAM SOD 3.375 GM in D5W MINI-BAG PLUS 50 ML IV ONE (17:30)
[2020-04-10 17:49] LABS: BASO % 0.3 % (0.0-1.0); EOS # 0.2 10^3/uL (0.0-0.5); EOS % 1.3 % (0.0-3.0); HEMATOCRIT 37.1 % (42.0-52.0); HEMOGLOBIN 12.2 g/dl (13.5-17.5); LYMPH # 1.7 10^3/uL (1.5-5.0); LYMPH % 14.2 % (24.0-44.0); MEAN CORPUSCULAR HEMOGLOBIN 29.2 pg (27.0-33.0); MEAN CORPUSCULAR HGB CONC 32.9 g/dl (32.0-36.5); MEAN CORPUSCULAR VOLUME 88.8 fl (80.0-96.0); MONO # 0.9 10^3/uL (0.0-0.8); MONO % 7.6 % (0.0-5.0); NEUTROPHILS # 9.3 10^3/uL (1.5-8.5); NEUTROPHILS % 75.9 % (36.0-66.0); PLATELET COUNT, AUTOMATED 208 10^3/uL (150-450); RED BLOOD COUNT 4.18 10^6/uL (4.30-6.10); WHITE BLOOD COUNT 12.3 10^3/uL (4.0-10.0)
[2020-04-10 18:08] LABS: INR 1.11
[2020-04-10 18:09] LABS: PARTIAL THROMBOPLASTIN TIME 27.3 SECONDS (25.0-38.4)
[2020-04-10 18:16] LABS: ERYTHROCYTE SEDIMENTATION RATE 66 mm/hr (0-20)
[2020-04-10 18:22] LABS: ALBUMIN 2.7 GM/DL (3.2-5.2); BILIRUBIN,DIRECT 0.1 MG/DL (0.0-0.2); BILIRUBIN,TOTAL 0.4 MG/DL (0.2-1.0); C REACTIVE PROTEIN QUANTITATIV 5.95 MG/DL (0.00-0.30); TOTAL PROTEIN 6.7 GM/DL (6.4-8.2)
[2020-04-10] MEDS ORDERED: GLUCAGON INJ 1MG VIAL SC PRN (20:30)
[2020-04-10] MEDS ORDERED: DEXTROSE 50% 50 ML SYRINGE IV PRN (20:30)
[2020-04-10] MEDS ORDERED: GLUCOSE 4GM CHEW TABLET PO PRN (20:30)
[2020-04-10] MEDS ORDERED: VANCOMYCIN HCL 1,000 MG, VIAL MATE ADAPTER 1 EACH in D5W 250 ML IV ONE (20:45)
--- NOTE | 2020-04-10 21:47 | ECGEPIP ---
[facility] - ED Test Date: 2020-04-10 Pat Name: JUAN ALBERTO RIVERA Department: Room: - Gender: Male Quilt Sewer: ef : 1960 Requested By: IRINA Poon Order Number: [id number] Reading MD: Dean Chakraborty Measurements Intervals [place] Rate: 68 P: 34 ME: 224 QRS: -22 QRSD: 130 T: 118 QT: 416 QTc: 445 Interpretive Statements SINUS RHYTHM WITH FIRST DEGREE AV BLOCK RIGHT BUNDLE BRANCH BLOCK NSTTW ABNORMALITIES SIMILAR TO 04/05/20 Electronically Signed on 04-10-2020 21:47:38 EDT by Dean Chakraborty
[2020-04-10] MEDS ORDERED: LISI10TA4 PO (21:50)
[2020-04-10] MEDS ORDERED: LEVO75TA4 PO (21:50)
[2020-04-10] MEDS ORDERED: TOPR100T PO (21:50)
[2020-04-10 22:00] VITALS: BP 135/77
--- NOTE | 2020-04-10 22:00 | HPEPDOC ---
[facility] Medical History & Physical Date of Admission Apr 10, 2020 Date of Service: Apr 10, 2020 Attending Physician: MARYANN PERERA MD History and Physical CHIEF COMPLAINT: Sent by Dr. Soliz for IV antibiotics HISTORY OF PRESENT ILLNESS: 60-year-old male with past medical history of coronary artery disease, [place], cardiac arrest, status post coronary stent placement, CABG and AICD, anoxic brain injury, diabetes mellitus, hypertension and hypothyroidism is sent by Dr. Soliz for IV antibiotics and podiatry evaluation. Patient underwent amputation of fifth digit on the left foot and Dr. Soliz's office 3-5 days ago, reportedly was having postoperative infection, underwent debridement in the office yesterday and upon evaluation today. He was sent to the hospital for further management. Podiatry has been consulted by emergency department, schedule for surgical intervention tomorrow. Patient currently reports pain in the left foot, otherwise comfortable without any exertional symptoms. He denies any fever, shortness of breath, chest pain, nausea, vomiting, diarrhea or constipation. 10 point review of systems is negative except for above PAST MEDICAL HISTORY: 1. Coronary artery disease. 2. Congestive heart failure. 3. Myocardial infarction. 4. Anoxic brain injury. 5. Diabetes mellitus. 6. Hypertension. 7. Hypothyroidism PAST SURGICAL HISTORY: 1. Coronary stent placement. 2. CABG. 3. AICD. 4. Toe amputation SOCIAL HISTORY: Previous smoker. Denies alcohol use. Denies drug use FAMILY HISTORY: Positive for heart disease in both parents ALLERGIES: Please see below. HOME MEDICATIONS: Please see below. PHYSICAL EXAMINATION: VITAL SIGNS: Please see below. GENERAL: No distress, obese HEENT: Normocephalic, atraumatic, moist mucous membranes NECK: Supple CARDIOVASCULAR EXAMINATION: S1, S2, regular RESPIRATORY EXAMINATION: Diminished, scattered rhonchi, no wheezing ABDOMINAL EXAMINATION: Soft, nontender, nondistended, positive bowel sounds EXTREMITIES: Left foot status post fifth digit amputation with open wound, mild drainage, surrounding erythema and tenderness. SKIN: No rash NEUROLOGICAL EXAMINATION: Alert and oriented 3, no focal deficits PSYCHIATRIC EXAMINATION: Calm and cooperative LABORATORY DATA: See below. IMAGING: Foot x-ray read pending MICROBIOLOGY: Please see below. ASSESSMENT: 60-year-old with an extensive medical history who recently underwent total amputation being admitted for wet gangrene. PLAN: 1. Wet gangrene. Left foot infection, recently underwent total amputation, further debridement and Dr. Soliz's office yesterday, now admitted for persistent infection requiring IV antibiotics and podiatry evaluation. Vancomycin/Zosyn, podiatry consulted, plan for procedure in the morning, nothing by mouth after breakfast. 2. Coronary artery disease. History of [place], status post coronary stent placement and CABG, continue optimal medical management with aspirin, Plavix, statin and beta delta. 3. Hypertension. Continue lisinopril and metoprolol 4. Diabetes mellitus. Continue Levemir and sliding scale insulin coverage with meals and at bedtime. 5. Hypothyroidism. Continue levothyroxine DVT prophylaxis: Heparin subcutaneous GI prophylaxis: Not needed Vital Signs Vital Signs Date Time Temp Pulse Resp B/P (MAP) Pulse Ox O2 Delivery O2 Flow Rate FiO2 04/10/20 19:30 62 136/79 (98) 95 04/10/20 16:59 99.0 18 Room Air Laboratory Data Labs 24H Laboratory Tests 2 04/10/20 17:37: Immature Granulocyte % (Auto) 0.7, Neutrophils (%) (Auto) 75.9H, Lymphocytes (%) (Auto) 14.2L, Monocytes (%) (Auto) 7.6H, Eosinophils (%) (Auto) 1.3, Basophils (%) (Auto) 0.3, Neutrophils # (Auto) 9.3H, Lymphocytes # (Auto) 1.7, Monocytes # (Auto) 0.9H, Eosinophils # (Auto) 0.2, Basophils # (Auto) 0.0, Nucleated Red Blood Cells % (auto) 0.0, Erythrocyte Sedimentation Rate 66H, Prothrombin Time 14.0, Prothromb Time International Ratio 1.11, Activated Partial Thromboplast Time 27.3, Lactic Acid Level 1.4, Total Bilirubin 0.4, Direct Bilirubin 0.1, Aspartate Amino Transf (AST/SGOT) 7, Alanine Aminotransferase (ALT/SGPT) 16, Alkaline Phosphatase 107, C-Reactive Protein, Quantitative 5.95H, Total Protein 6.7, Albumin 2.7L, Albumin/Globulin Ratio 0.7, Lipase 49L 04/10/20 17:52: POC Glucose (Misc Panel) 250H, POC Sodium (Misc Panel) 137, POC Potassium (Misc Panel) 4.4, POC Chloride (Misc Panel) 99, POC Total CO2 (Misc Panel) 26.0, POC Blood Urea Nitrogen (Misc Panel 22, POC Ionized Calcium (Misc Panel) 4.7, POC Creatinine (Misc Panel) 1.2, POC Hematocrit (Misc Panel) 39.0 CBC/BMP Laboratory Tests 04/10/20 17:37 Microbiology Microbiology 04/10/20 Blood Culture, Received Pending 04/10/20 Blood Culture, Received Pending Home Medications Scheduled Amiodarone HCl (Amiodarone HCl) 200 Mg Tab, 200 MG PO ASDIRECTED MWF AT 1800 Aspirin (Aspirin EC) 325 Mg Tabec, 325 MG PO QPM Atorvastatin Calcium (Lipitor) 40 Mg Tab, 40 MG PO QPM Calcium Carbonate/Vitamin D3 (Calcium 500-Vit D3 200 Caplet) 1 Tab Tab, 1 TAB PO QPM Insulin Glargine (Lantus) 100 Mg/Ml Inj, 65 UNITS INJ QPM Lisinopril (Lisinopril) 2.5 Mg Tab, 10 MG PO QPM Metformin HCl (Glucophage) 1,000 Mg Tab, 1,000 MG PO QPM Metoprolol Succinate (Metoprolol Succinate) 50 Mg Tab, 100 MG PO QPM Multivitamins (Theragran) 1 Tab Tab, 1 TAB PO QPM Sitagliptin Phosphate (Januvia) 100 Mg Tab, 100 MG PO QPM Spironolactone (Aldactone) 25 Mg Tab, 12.5 MG PO QPM Miscellaneous Medications Clopidogrel Bisulfate (Clopidogrel) 75 Mg Tablet HASNT STARTED YET Levothyroxine Sodium (Levothyroxine Sodium) 88 Mcg Tablet Allergies Coded Allergies: No Known Allergies (Unverified , 08/10/19) A-FIB/CHADSVASC A-FIB History Current/History of A-Fib/PAF?: No MARYANN PERERA MD Apr 10, 2020 21:57
[2020-04-10] MEDS: CLOPIDOGREL 75 MG TAB PO SCH (22:47)
[2020-04-10] MEDS: ASPIRIN ENTERIC 325 MG TAB PO SCH (22:47)
[2020-04-10] MEDS: SPIRONOLACTONE 12.5MG PER 1/2 TABLET PO SCH (22:47)
[2020-04-10] MEDS: LEVOTHYROXINE 75MCG TABLET (0.075MG) PO SCH (22:47)
[2020-04-10] MEDS: CALCIUM/VITAMIN D 500 MG TAB PO SCH (22:47)
[2020-04-10] MEDS: ATORVASTATIN 20 MG TAB PO SCH (22:47)
[2020-04-10] MEDS: METOPROLOL SUCC (TopROL XL) 100MG *XL* TAB PO SCH (22:48)
[2020-04-10] MEDS: LEVEMIR (INSULIN DETEMIR) 1 UNITS/0.01ML SC SCH (22:48)
[2020-04-10] MEDS: lisinopriL 10 MG TAB PO SCH (22:48)
[2020-04-10] MEDS: HEPARIN SOD (PORCINE) 5000UNITS/ML VIAL (J1644 PER 1000UNITS) SC SCH (22:49)
[2020-04-10] MEDS: HumaLOG INSULIN (NovoLOG) PER UNIT SC SCH (22:49)
--- NOTE | 2020-04-10 22:55 | REP ---
REASON: Lesion. There is complete absence of the middle and distal phalanx of the 5th digit of the right foot with only the base of the proximal phalanx remaining, the margins of which are irregular. Plantar and retrocalcaneal heel spurs are present. IMPRESSION: Amputation, as described above. Electronically Signed by Sami Do DO 04/11/2020 01:23 P
[2020-04-11] VITALS (8 sets, daily range): BP systolic 112–158; BP diastolic 74–88
[2020-04-11] MEDS: PIPERACILLIN/TAZOBACTAM SOD 3.375 GM in D5W MINI-BAG PLUS 50 ML IV SCH ×4 (01:49→20:06)
[2020-04-11] MEDS: VANCOMYCIN HCL 1,000 MG, VIAL MATE ADAPTER 1 EACH in D5W 250 ML IV SCH ×3 (03:03→21:30)
[2020-04-11 05:56] LABS: HEMATOCRIT 35.4 % (42.0-52.0); HEMOGLOBIN 11.6 g/dl (13.5-17.5); MEAN CORPUSCULAR HEMOGLOBIN 29.1 pg (27.0-33.0); MEAN CORPUSCULAR HGB CONC 32.8 g/dl (32.0-36.5); MEAN CORPUSCULAR VOLUME 88.9 fl (80.0-96.0); PLATELET COUNT, AUTOMATED 188 10^3/uL (150-450); RED BLOOD COUNT 3.98 10^6/uL (4.30-6.10); WHITE BLOOD COUNT 11.5 10^3/uL (4.0-10.0)
[2020-04-11 06:13] LABS: ALBUMIN 2.4 GM/DL (3.2-5.2); ALT/SGPT 15 U/L (12-78); BILIRUBIN,TOTAL 0.5 MG/DL (0.2-1.0); BLOOD UREA NITROGEN 19 MG/DL (7-18); CALCIUM LEVEL 8.3 MG/DL (8.8-10.2); CARBON DIOXIDE LEVEL 28 MEQ/L (21-32); CHLORIDE LEVEL 105 MEQ/L (98-107); CREATININE FOR GFR 1.07 MG/DL (0.70-1.30); GLOMERULAR FILTRATION RATE > 60.0 (>49); GLUCOSE, FASTING 182 MG/DL (70-100); MAGNESIUM LEVEL 1.8 MG/DL (1.8-2.4); POTASSIUM SERUM 3.9 MEQ/L (3.5-5.1); SODIUM LEVEL 139 MEQ/L (136-145); TOTAL PROTEIN 6.3 GM/DL (6.4-8.2)
[2020-04-11] MEDS: HumaLOG INSULIN (NovoLOG) PER UNIT SC SCH ×4 (08:28→20:58)
[2020-04-11] MEDS: HEPARIN SOD (PORCINE) 5000UNITS/ML VIAL (J1644 PER 1000UNITS) SC SCH ×2 (08:28→20:47)
--- NOTE | 2020-04-11 09:08 | IPN ---
DATE: 04/11/2020 CHIEF COMPLAINT: 60-year-old male seen for evaluation of an infected 5th toe of his left foot. The patient states that he has been seeing Dr. Soliz with debridements and treatments for a wound on his 5th toe. He states that approximately a week ago, he had the end of his toe removed. The patient states that it got consistently worse and was advised by Dr. Soliz to go to the hospital for IV antibiotics. He is seen today for evaluation. He denies shortness of breath or chest pain. PAST MEDICAL HISTORY: 1. Coronary artery disease. 2. Congestive heart failure. 3. Myocardial infarction. 4. Anoxic brain injury. 5. Diabetes mellitus. 6. Hypertension. 7. Hypothyroidism. PAST SURGICAL HISTORY: Coronary stent placement. Coronary arterial bypass graft and 5th toe amputation, left foot. MEDICATIONS: Amiodarone 200 mg by mouth, aspirin 325 mg every p.m., atorvastatin 40 mg by mouth at bedtime (q.h.s.), calcium carbonate/vitamin D3, Lantus insulin, lisinopril 2.5 mg tablets every evening, metformin 1000 mg by mouth every p.m., metoprolol 100 mg by mouth every evening, multivitamins, sitagliptin 100 mg tablet and spironolactone 25 mg tablet 12.5 mg by mouth every evening, levothyroxine 38 mcg tablet. ALLERGIES: None listed. Evaluation of his foot reveals an open guillotine amputation of the 5th toe. There is a foul odor coming from the end of the toe. The x-rays were inspected revealing the base of the 5th metatarsal present; however, there is some erosion at the distal aspect. No signs of osteomyelitis of the 5th metatarsal. There is some fragmentation at the distal margin. LABORATORY STUDIES REVIEWED: White count on admission was 12.3, ESR is 66, C-reactive protein is 5.95. Glomerular filtration rate (GFR) greater than 60, creatinine 1.07. The patient has a bandage in place on his left foot. This was removed revealing an approximately 1 cm x 0.8 cm open ulceration. No purulent discharge, but necrotic tissue is visible in the base of the wound. There is a foul odor. The dorsalis pedis pulse is palpable, posterior tibial pulse is not palpable. ASSESSMENT: Continued osteomyelitis 5th toe, left foot. PLAN: The patient is scheduled for debridement with removal of the proximal phalanx of the 5th metatarsal. The wound will be irrigated, then packed open. The patient's questions were answered.
--- NOTE | 2020-04-11 16:35 | IPNPDOC ---
Text Note Date of Service The patient was seen on 04/11/20. NOTE Subjective: No any acute events overnight. Patient denies fever, chills, chest pain, palpitations, diarrhea or dysuria Objective: PHYSICAL EXAMINATION: VITAL SIGNS: Please see below. GENERAL: No distress, obese HEENT: Normocephalic, atraumatic, moist mucous membranes NECK: Supple CARDIOVASCULAR EXAMINATION: S1, S2, regular RESPIRATORY EXAMINATION: Diminished, scattered rhonchi, no wheezing ABDOMINAL EXAMINATION: Soft, nontender, nondistended, positive bowel sounds EXTREMITIES: The patient has a bandage in place on his left foot. This was removed revealing an approximately 1 cm x 0.8 cm open ulceration. No purulent discharge, but necrotic tissue is visible in the base of the wound. There is a foul odor. The dorsalis pedis pulse is palpable, posterior tibial pulse is not palpable SKIN: No rash NEUROLOGICAL EXAMINATION: Alert and oriented 3, no focal deficits PSYCHIATRIC EXAMINATION: Calm and cooperative ASSESSMENT: 60-year-old with an extensive medical history who recently underwent total amputation being admitted for wet gangrene. PLAN: 1. Wet gangrene. Left foot infection, recently underwent total amputation, further debridement and Dr. Soliz's office yesterday, now admitted for persistent infection requiring IV antibiotics and podiatry evaluation. Vancomycin/Zosyn, podiatry consulted The patient is scheduled for debridement with removal of the proximal phalanx of the 5th metatarsal 2. Coronary artery disease. History of [place], status post coronary stent placement and CABG, continue optimal medical management with aspirin, Plavix, statin and beta delta. 3. Hypertension. Continue lisinopril and metoprolol 4. Diabetes mellitus. Continue Levemir and sliding scale insulin coverage with meals and at bedtime. 5. Hypothyroidism. Continue levothyroxine DVT prophylaxis: Heparin subcutaneous VS,Fishbone, I+O VS, Fishbone, I+O Laboratory Tests 04/10/20 17:37 04/11/20 05:29 Vital Signs Date Time Temp Pulse Resp B/P (MAP) Pulse Ox O2 Delivery O2 Flow Rate FiO2 04/11/20 14:00 98.7 72 18 132/78 (96) 98 Room Air I&O- Last 24 Hours up to 6 AM 04/11/20 06:00 Intake Total 570 ml Output Total 575 ml Balance -5 ml DROZHZHIN,JUAN DO Apr 11, 2020 16:35
[2020-04-11] MEDS ORDERED: fentaNYL 100 MCG/2 ML INJECTION (J3010) As Ordered ONE ×2 (16:59→19:25)
[2020-04-11] MEDS ORDERED: propofoL 200 MG/20 ML VIAL As Ordered ONE (16:59)
[2020-04-11] MEDS ORDERED: ONDANSETRON 4MG/2ML VIAL As Ordered ONE ×2 (16:59→19:26)
[2020-04-11] MEDS ORDERED: MIDAZOLAM INJ 2MG/2ML VIAL (J2250 PER 1MG) As Ordered ONE (16:59)
[2020-04-11] MEDS ORDERED: LIDOCAINE 2% MDV 20ML VIAL As Ordered ONE (17:05)
[2020-04-11] MEDS ORDERED: BUPIVACAINE HCL 0.5% 10ML VIAL As Ordered ONE (17:05)
[2020-04-11] MEDS ORDERED: GENTAMICIN SULF 80MG/2ML VIAL As Ordered ONE (18:08)
[2020-04-11] MEDS ORDERED: PERCOCET 5MG/325MG TAB As Ordered ONE (19:25)
[2020-04-11] MEDS ORDERED: fentaNYL 100 MCG/2 ML INJECTION (J3010) IV PRN (19:30)
[2020-04-11] MEDS ORDERED: PERCOCET 5MG/325MG TAB PO PRN (19:30)
[2020-04-11] MEDS ORDERED: LR 1,000 ML IV SCH (19:30)
[2020-04-11] MEDS ORDERED: ONDANSETRON 4MG/2ML VIAL IV PRN (19:30)
[2020-04-11] MEDS ORDERED: METOCLOPRAMIDE INJ 10MG/2ML VIAL (J2765 PER 1) IV PRN (19:30)
[2020-04-11] MEDS ORDERED: ZOSYN 3.375GM VIAL (J2543) As Ordered ONE (19:58)
[2020-04-11] MEDS: SPIRONOLACTONE 12.5MG PER 1/2 TABLET PO SCH (20:45)
[2020-04-11] MEDS: LEVOTHYROXINE 75MCG TABLET (0.075MG) PO SCH (20:45)
[2020-04-11] MEDS: METOPROLOL SUCC (TopROL XL) 100MG *XL* TAB PO SCH (20:46)
[2020-04-11] MEDS: CALCIUM/VITAMIN D 500 MG TAB PO SCH (20:46)
[2020-04-11] MEDS: ATORVASTATIN 20 MG TAB PO SCH (20:46)
[2020-04-11] MEDS: AMIODARONE 200 MG TAB (PACERONE) PO SCH (20:46)
[2020-04-11] MEDS: ASPIRIN ENTERIC 325 MG TAB PO SCH (20:46)
[2020-04-11] MEDS: CLOPIDOGREL 75 MG TAB PO SCH (20:46)
[2020-04-11] MEDS: lisinopriL 10 MG TAB PO SCH (20:47)
[2020-04-11] MEDS: LEVEMIR (INSULIN DETEMIR) 1 UNITS/0.01ML SC SCH (20:47)
[2020-04-12] VITALS (7 sets, daily range): BP systolic 102–153; BP diastolic 52–87
[2020-04-12] MEDS: PIPERACILLIN/TAZOBACTAM SOD 3.375 GM in D5W MINI-BAG PLUS 50 ML IV SCH ×4 (00:09→17:24)
[2020-04-12] MEDS: VANCOMYCIN HCL 1,000 MG, VIAL MATE ADAPTER 1 EACH in D5W 250 ML IV SCH ×2 (01:21→08:04)
[2020-04-12] MEDS: HumaLOG INSULIN (NovoLOG) PER UNIT SC SCH ×4 (08:04→21:20)
[2020-04-12] MEDS: HEPARIN SOD (PORCINE) 5000UNITS/ML VIAL (J1644 PER 1000UNITS) SC SCH ×2 (08:04→21:20)
--- NOTE | 2020-04-12 08:33 | REP ---
LEFT FOOT: Three views. HISTORY: Postop. Comparison study April 10, 2020. FINDINGS: In the interval since the last exam, the remainder of the proximal phalanx of the 5th digit has been amputated at the MTP joint. There is overlying soft tissue swelling and a surgical dressing is seen in place. Vascular calcification, calcaneal spurring, and some soft tissue emphysema in the plantar soft tissues are additional findings. Electronically Signed by Donis Kuhn MD 04/12/2020 09:29 A
[2020-04-12 09:11] LABS: BASO % 0.3 % (0.0-1.0); EOS # 0.1 10^3/uL (0.0-0.5); EOS % 1.4 % (0.0-3.0); HEMATOCRIT 34.9 % (42.0-52.0); HEMOGLOBIN 11.3 g/dl (13.5-17.5); LYMPH # 1.4 10^3/uL (1.5-5.0); LYMPH % 13.8 % (24.0-44.0); MEAN CORPUSCULAR HEMOGLOBIN 29.7 pg (27.0-33.0); MEAN CORPUSCULAR HGB CONC 32.4 g/dl (32.0-36.5); MEAN CORPUSCULAR VOLUME 91.6 fl (80.0-96.0); NEUTROPHILS # 7.6 10^3/uL (1.5-8.5); NEUTROPHILS % 74.2 % (36.0-66.0); PLATELET COUNT, AUTOMATED 188 10^3/uL (150-450); RED BLOOD COUNT 3.81 10^6/uL (4.30-6.10); WHITE BLOOD COUNT 10.3 10^3/uL (4.0-10.0)
[2020-04-12 10:08] LABS: CALCIUM LEVEL 8.6 MG/DL (8.8-10.2); CREATININE FOR GFR 1.89 MG/DL (0.70-1.30); GLOMERULAR FILTRATION RATE 38.8 (>49); MAGNESIUM LEVEL 1.8 MG/DL (1.8-2.4); POTASSIUM SERUM 4.4 MEQ/L (3.5-5.1)
[2020-04-12] MEDS ORDERED: ACETAMINOPHEN TAB 650MG DOSE (2X325MG) PO PRN (11:30)
[2020-04-12] MEDS ORDERED: traMADol 50 MG TAB PO PRN (11:30)
--- NOTE | 2020-04-12 16:18 | IPNPDOC ---
Text Note Date of Service The patient was seen on 04/12/20. NOTE Subjective: No any acute events overnight. Debridement was done yesterday, kennedi summers tolerated debridement well Patient denies fever, chills, chest pain, palpitations, diarrhea or dysuria Objective: PHYSICAL EXAMINATION: VITAL SIGNS: Please see below. GENERAL: No distress, obese HEENT: Normocephalic, atraumatic, moist mucous membranes NECK: Supple CARDIOVASCULAR EXAMINATION: S1, S2, regular RESPIRATORY EXAMINATION: Diminished, scattered rhonchi, no wheezing ABDOMINAL EXAMINATION: Soft, nontender, nondistended, positive bowel sounds EXTREMITIES: The patient has a bandage in place on his left foot. SKIN: No rash NEUROLOGICAL EXAMINATION: Alert and oriented 3, no focal deficits PSYCHIATRIC EXAMINATION: Calm and cooperative ASSESSMENT: 60-year-old with an extensive medical history who recently underwent total amputation being admitted for wet gangrene. PLAN: 1. Wet gangrene. Left foot infection, recently underwent total amputation, further debridement and Dr. Soliz's office yesterday, now admitted for persistent infection requiring IV antibiotics and podiatry evaluation. Vancomycin/Zosyn, podiatry consulted debridement was done on 04/11/20. Wound culture positive for gram-positive cocci in pairs and gram-positive rods PT/OT 2. Coronary artery disease. History of [place], status post coronary stent placement and CABG, continue optimal medical management with aspirin, Plavix, statin and beta delta. 3. Hypertension. Continue lisinopril and metoprolol 4. Diabetes mellitus. Continue Levemir and sliding scale insulin coverage with meals and at bedtime. 5. Hypothyroidism. Continue levothyroxine DVT prophylaxis: Heparin subcutaneous VS,Fishbone, I+O VS, Fishbone, I+O Laboratory Tests 04/12/20 08:43 Vital Signs Date Time Temp Pulse Resp B/P (MAP) Pulse Ox O2 Delivery O2 Flow Rate FiO2 04/12/20 14:00 97.1 68 18 124/69 (87) 96 Room Air 04/12/20 02:00 2.0 I&O- Last 24 Hours up to 6 AM 04/12/20 06:00 Intake Total 2115 ml Output Total 1255 ml Balance 860 ml JUAN MULLIGAN DO Apr 12, 2020 16:18
[2020-04-12] MEDS ORDERED: VANCOMYCIN INTERMITTENT/PULSE DOSING BY CLINICAL PHARMACIST PER DOSING PROTOCOL XX SCH (17:15)
[2020-04-12] MEDS: LEVEMIR (INSULIN DETEMIR) 1 UNITS/0.01ML SC SCH (17:24)
[2020-04-12] MEDS: ASPIRIN ENTERIC 325 MG TAB PO SCH (17:27)
[2020-04-12] MEDS: ATORVASTATIN 20 MG TAB PO SCH (17:27)
[2020-04-12] MEDS: LEVOTHYROXINE 75MCG TABLET (0.075MG) PO SCH (17:27)
[2020-04-12] MEDS: CALCIUM/VITAMIN D 500 MG TAB PO SCH (17:27)
[2020-04-12] MEDS: CLOPIDOGREL 75 MG TAB PO SCH (17:27)
[2020-04-12] MEDS: SPIRONOLACTONE 12.5MG PER 1/2 TABLET PO SCH (17:27)
[2020-04-12] MEDS: lisinopriL 10 MG TAB PO SCH (17:28)
[2020-04-12] MEDS: METOPROLOL SUCC (TopROL XL) 100MG *XL* TAB PO SCH (17:28)
--- NOTE | 2020-04-12 21:36 | IPN ---
DATE: 04/12/2020 CHIEF COMPLAINT: Patient seen today for evaluation at bedside. Patient states that his left foot is tender, but it feels better than it did prior to his admission. The bandage was removed from the patient's left foot. There was a reduction in erythema around the left foot. The foul odor previously present now has resolved with no active necrotic tissue. Some granulation tissue is now present along the nail bed. The Gram stain was reviewed revealing moderate Gram-positive cocci in pairs and moderate Gram-positive rods. ASSESSMENT: Healing status post 5th toe amputation left foot. PLAN: Patient will continue his present antibiotics until his culture becomes available. His questions were answered.
[2020-04-13] MEDS: PIPERACILLIN/TAZOBACTAM SOD 3.375 GM in D5W MINI-BAG PLUS 50 ML IV SCH ×5 (00:39→23:59)
[2020-04-13 02:00] VITALS: BP 137/79
[2020-04-13 06:00] VITALS: BP 125/77
[2020-04-13 06:09] LABS: BASO % 0.2 % (0.0-1.0); EOS # 0.3 10^3/uL (0.0-0.5); EOS % 2.7 % (0.0-3.0); HEMATOCRIT 33.1 % (42.0-52.0); HEMOGLOBIN 11.1 g/dl (13.5-17.5); LYMPH # 1.7 10^3/uL (1.5-5.0); LYMPH % 17.7 % (24.0-44.0); MEAN CORPUSCULAR HEMOGLOBIN 30.3 pg (27.0-33.0); MEAN CORPUSCULAR HGB CONC 33.5 g/dl (32.0-36.5); MEAN CORPUSCULAR VOLUME 90.4 fl (80.0-96.0); MONO % 9.8 % (0.0-5.0); NEUTROPHILS # 6.7 10^3/uL (1.5-8.5); NEUTROPHILS % 69.2 % (36.0-66.0); PLATELET COUNT, AUTOMATED 188 10^3/uL (150-450); RED BLOOD COUNT 3.66 10^6/uL (4.30-6.10); WHITE BLOOD COUNT 9.8 10^3/uL (4.0-10.0)
[2020-04-13 06:38] LABS: C REACTIVE PROTEIN QUANTITATIV 7.47 MG/DL (0.00-0.30); CALCIUM LEVEL 8.4 MG/DL (8.8-10.2); CREATININE FOR GFR 1.95 MG/DL (0.70-1.30); GLOMERULAR FILTRATION RATE 37.4 (>49); MAGNESIUM LEVEL 1.8 MG/DL (1.8-2.4)
[2020-04-13] MEDS ORDERED: VANCOMYCIN HCL 1,000 MG, VIAL MATE ADAPTER 1 EACH in D5W 250 ML IV ONE (08:00)
[2020-04-13] MEDS: HumaLOG INSULIN (NovoLOG) PER UNIT SC SCH ×4 (08:36→22:52)
[2020-04-13] MEDS: HEPARIN SOD (PORCINE) 5000UNITS/ML VIAL (J1644 PER 1000UNITS) SC SCH ×2 (08:36→22:51)
[2020-04-13 10:00] VITALS: BP 115/73
--- NOTE | 2020-04-13 11:19 | IPNPDOC ---
Text Note Date of Service The patient was seen on 04/13/20. NOTE Subjective: No any acute events overnight. Debridement was done on 04/11/20, p atient tolerated debridement well Patient denies fever, chills, chest pain, palpitations, diarrhea or dysuria Objective: PHYSICAL EXAMINATION: VITAL SIGNS: Please see below. GENERAL: No distress, obese HEENT: Normocephalic, atraumatic, moist mucous membranes NECK: Supple CARDIOVASCULAR EXAMINATION: S1, S2, regular RESPIRATORY EXAMINATION: Diminished, scattered rhonchi, no wheezing ABDOMINAL EXAMINATION: Soft, nontender, nondistended, positive bowel sounds EXTREMITIES: The patient has a bandage in place on his left foot. SKIN: No rash NEUROLOGICAL EXAMINATION: Alert and oriented 3, no focal deficits PSYCHIATRIC EXAMINATION: Calm and cooperative ASSESSMENT: 60-year-old with an extensive medical history who recently underwent total amputation being admitted for wet gangrene. PLAN: 1. Wet gangrene. Left foot infection, recently underwent total amputation, further debridement and Dr. Soliz's office yesterday, now admitted for persistent infection requiring IV antibiotics and podiatry evaluation. Vancomycin/Zosyn debridement was done on 04/11/20. Wound culture positive for gram-positive cocci in pairs and gram-positive rods. Await finalization of wound culture PT/OT 2. Coronary artery disease. History of [place], status post coronary stent placement and CABG, continue optimal medical management with aspirin, Plavix, statin and beta delta. 3. Hypertension. Continue lisinopril and metoprolol 4. Diabetes mellitus. Continue Levemir and sliding scale insulin coverage with meals and at bedtime. 5. Hypothyroidism. Continue levothyroxine GAYATRI We'll adjust the dose of vancomycin Lisinopril on hold Continue to monitor Gentle IV hydration DVT prophylaxis: Heparin subcutaneous VS,Fishbone, I+O VS, Fishbone, I+O Laboratory Tests 04/13/20 05:31 Vital Signs Date Time Temp Pulse Resp B/P (MAP) Pulse Ox O2 Delivery O2 Flow Rate FiO2 04/13/20 10:00 97.6 64 18 115/73 (87) 97 Nasal Cannula 1.0 I&O- Last 24 Hours up to 6 AM 04/13/20 06:00 Intake Total 2770 ml Output Total 1745 ml Balance 1025 ml JUAN MULLIGAN DO Apr 13, 2020 11:19
[2020-04-13] MEDS: NS 1,000 ML IV SCH ×2 (12:35→22:52)
[2020-04-13 14:00] VITALS: BP 138/74
[2020-04-13] MEDS: CLOPIDOGREL 75 MG TAB PO SCH (17:53)
[2020-04-13] MEDS: LEVOTHYROXINE 75MCG TABLET (0.075MG) PO SCH (17:53)
[2020-04-13] MEDS: ATORVASTATIN 20 MG TAB PO SCH (17:53)
[2020-04-13] MEDS: CALCIUM/VITAMIN D 500 MG TAB PO SCH (17:53)
[2020-04-13] MEDS: LEVEMIR (INSULIN DETEMIR) 1 UNITS/0.01ML SC SCH (17:53)
[2020-04-13] MEDS: SPIRONOLACTONE 12.5MG PER 1/2 TABLET PO SCH (17:53)
[2020-04-13] MEDS: ASPIRIN ENTERIC 325 MG TAB PO SCH (17:53)
[2020-04-13] MEDS: AMIODARONE 200 MG TAB (PACERONE) PO SCH (17:54)
[2020-04-13] MEDS: METOPROLOL SUCC (TopROL XL) 100MG *XL* TAB PO SCH (17:55)
[2020-04-13 18:00] VITALS: BP 142/80
[2020-04-13 22:00] VITALS: BP 131/80
[2020-04-14 02:00] VITALS: BP 137/82
[2020-04-14] MEDS: PIPERACILLIN/TAZOBACTAM SOD 3.375 GM in D5W MINI-BAG PLUS 50 ML IV SCH ×3 (05:56→17:48)
[2020-04-14 06:00] VITALS: BP 132/78
[2020-04-14 07:07] LABS: BASO % 0.5 % (0.0-1.0); EOS # 0.3 10^3/uL (0.0-0.5); EOS % 3.4 % (0.0-3.0); HEMATOCRIT 32.8 % (42.0-52.0); HEMOGLOBIN 10.8 g/dl (13.5-17.5); LYMPH # 1.4 10^3/uL (1.5-5.0); LYMPH % 17.8 % (24.0-44.0); MEAN CORPUSCULAR HEMOGLOBIN 29.4 pg (27.0-33.0); MEAN CORPUSCULAR HGB CONC 32.9 g/dl (32.0-36.5); MEAN CORPUSCULAR VOLUME 89.4 fl (80.0-96.0); MONO # 0.7 10^3/uL (0.0-0.8); MONO % 8.7 % (0.0-5.0); NEUTROPHILS # 5.5 10^3/uL (1.5-8.5); NEUTROPHILS % 68.9 % (36.0-66.0); PLATELET COUNT, AUTOMATED 192 10^3/uL (150-450); RED BLOOD COUNT 3.67 10^6/uL (4.30-6.10)
[2020-04-14 07:24] LABS: C REACTIVE PROTEIN QUANTITATIV 5.29 MG/DL (0.00-0.30); CALCIUM LEVEL 8.8 MG/DL (8.8-10.2); CREATININE FOR GFR 1.68 MG/DL (0.70-1.30); GLOMERULAR FILTRATION RATE 44.4 (>49); MAGNESIUM LEVEL 1.8 MG/DL (1.8-2.4); POTASSIUM SERUM 4.3 MEQ/L (3.5-5.1); VANCOMYCIN RANDOM 11.1 UG/ML
[2020-04-14] MEDS: HEPARIN SOD (PORCINE) 5000UNITS/ML VIAL (J1644 PER 1000UNITS) SC SCH ×2 (08:33→20:00)
[2020-04-14] MEDS: HumaLOG INSULIN (NovoLOG) PER UNIT SC SCH ×4 (08:33→19:59)
[2020-04-14] MEDS ORDERED: VANCOMYCIN HCL 1,000 MG, VIAL MATE ADAPTER 1 EACH in D5W 250 ML IV SCH (09:00)
[2020-04-14 10:00] VITALS: BP 158/74
[2020-04-14] MEDS: NS 1,000 ML IV SCH (12:56)
[2020-04-14 14:00] VITALS: BP 165/86
[2020-04-14] MEDS ORDERED: AUGM875T28 PO (15:06)
--- NOTE | 2020-04-14 16:35 | DS.PDOC ---
Discharge Summary General Date of Admission Apr 10, 2020 at 20:30 Date of Discharge 04/14/20 Discharge Summary PROCEDURES PERFORMED DURING STAY: [None]. ADMITTING DIAGNOSES: Wet gangrene Coronary artery disease Hypertension Diabetes mellitus Hypothyroidism GAYATRI DISCHARGE DIAGNOSES: Wet gangrene Coronary artery disease Hypertension Diabetes mellitus Hypothyroidism GAYATRI COMPLICATIONS/CHIEF COMPLAINT: Wet Gangrene. HISTORY OF PRESENT ILLNESS: 60-year-old with an extensive medical history who recently underwent total amputation being admitted for wet gangrene. HOSPITAL COURSE: During hospital stay following issue addressed 1. Wet gangrene. Left foot infection, recently underwent total amputation, further debridement and Dr. Soliz's office yesterday, now admitted for persistent infection requiring IV antibiotics and podiatry evaluation. pt received Vancomycin/Zosyn debridement was done on 04/11/20. Wound culture shows MSSA 2. Coronary artery disease. History of [place], status post coronary stent placement and CABG, continue optimal medical management with aspirin, Plavix, statin and beta delta. 3. Hypertension. lisinopril and metoprolol 4. Diabetes mellitus. Continue Levemir and sliding scale insulin coverage with meals and at bedtime. 5. Hypothyroidism. Continue levothyroxine GAYATRI We'll adjust the dose of vancomycin Lisinopril on hold Continue to monitor Gentle IV hydration DISCHARGE MEDICATIONS: Please see below. ALLERGIES: Please see below. PHYSICAL EXAMINATION ON DISCHARGE: VITAL SIGNS: Please see below. GENERAL: No distress, obese HEENT: Normocephalic, atraumatic, moist mucous membranes NECK: Supple CARDIOVASCULAR EXAMINATION: S1, S2, regular RESPIRATORY EXAMINATION: Diminished, scattered rhonchi, no wheezing ABDOMINAL EXAMINATION: Soft, nontender, nondistended, positive bowel sounds EXTREMITIES: The patient has a bandage in place on his left foot. SKIN: No rash NEUROLOGICAL EXAMINATION: Alert and oriented 3, no focal deficits PSYCHIATRIC EXAMINATION: Calm and cooperative LABORATORY DATA: Please see below. IMAGING: LEFT FOOT: Three views. HISTORY: Postop. Comparison study April 10, 2020. FINDINGS: In the interval since the last exam, the remainder of the proximal phalanx of the 5th digit has been amputated at the MTP joint. There is overlying soft tissue swelling and a surgical dressing is seen in place. Vascular calcification, calcaneal spurring, and some soft tissue emphysema in the plantar soft tissues are additional findings. PROGNOSIS: Fair ACTIVITY: [As tolerated]. DIET: Cardiac DISPOSITION: Home ITEMS TO FOLLOWUP ON ON OUTPATIENT: Follow-up with lubrication supervisor and nuclear weapons specialist DISCHARGE CONDITION: [Stable]. TIME SPENT ON DISCHARGE: Greater than 20 minutes. Vital Signs/I&Os Vital Signs Date Time Temp Pulse Resp B/P (MAP) Pulse Ox O2 Delivery O2 Flow Rate FiO2 04/14/20 06:00 97.8 78 19 132/78 (96) 97 Room Air 04/13/20 10:00 1.0 I&O- Last 24 Hours up to 6 AM 04/14/20 06:00 Intake Total 2665 ml Output Total 2600 ml Balance 65 ml Laboratory Data Labs 24H Laboratory Tests 2 04/13/20 16:38: Bedside Glucose (Misc Panel) 296H 04/13/20 20:49: Bedside Glucose (Misc Panel) 358H 04/14/20 06:33: Immature Granulocyte % (Auto) 0.7, Neutrophils (%) (Auto) 68.9H, Lymphocytes (%) (Auto) 17.8L, Monocytes (%) (Auto) 8.7H, Eosinophils (%) (Auto) 3.4H, Basophils (%) (Auto) 0.5, Neutrophils # (Auto) 5.5, Lymphocytes # (Auto) 1.4L, Monocytes # (Auto) 0.7, Eosinophils # (Auto) 0.3, Basophils # (Auto) 0.0, Nucleated Red Blood Cells % (auto) 0.2H, Anion Gap 6L, Glomerular Filtration Rate 44.4L, Calcium Level 8.8, Magnesium Level 1.8, C-Reactive Protein, Quantitative 5.29H, Random Vancomycin Level 11.1 04/14/20 12:30: Bedside Glucose (Misc Panel) 312H CBC/BMP Laboratory Tests 04/14/20 06:33 FSBS Laboratory Tests Test 04/13/20 16:38 04/13/20 20:49 04/14/20 12:30 Range/Units Bedside Glucose (Misc Panel) 296 358 312 80-115 MG/DL Microbiology Microbiology 04/11/20 Gram Stain - Final, Resulted 04/11/20 Wound Culture, Resulted Pending 04/11/20 Anaerobic Culture, Resulted Pending 04/11/20 Respiratory Virus Panel (PCR) (TATUM) - Final, Complete 04/10/20 Blood Culture - Preliminary, Resulted No Growth after 72 hours. All specime... 04/10/20 Blood Culture - Preliminary, Resulted No Growth after 72 hours. All specime... Discharge Medications Scheduled Amiodarone HCl (Amiodarone HCl) 200 Mg Tab, 200 MG PO ASDIRECTED, (Reported) MWF AT 1800 Amoxicillin/Potassium Clav (Augmentin 875-125 Tablet) 1 Each Tablet, 875 MG PO BID Aspirin (Aspirin EC) 325 Mg Tabec, 325 MG PO QPM, (Reported) Atorvastatin Calcium (Lipitor) 40 Mg Tab, 40 MG PO QPM, (Reported) Calcium Carbonate/Vitamin D3 (Calcium 500-Vit D3 200 Caplet) 1 Tab Tab, 1 TAB PO QPM, (Reported) Clopidogrel Bisulfate (Clopidogrel) 75 Mg Tablet, 75 MG PO QPM, (Reported) HASNT STARTED YET Insulin Glargine (Lantus) 100 Mg/Ml Inj, 65 UNITS INJ QPM, (Reported) Levothyroxine Sodium (Levothyroxine Sodium) 75 Mcg Tablet, 75 MCG PO QPM, (Reported) Lisinopril (Lisinopril) 10 Mg Tablet, 10 MG PO QPM, (Reported) Metformin HCl (Glucophage) 1,000 Mg Tab, 1,000 MG PO QPM, (Reported) Metoprolol Succinate (Toprol Xl) 100 Mg Tab.er.24h, 100 MG PO QPM, (Reported) Multivitamins (Theragran) 1 Tab Tab, 1 TAB PO QPM, (Reported) Sitagliptin Phosphate (Januvia) 100 Mg Tab, 100 MG PO QPM, (Reported) Spironolactone (Aldactone) 25 Mg Tab, 12.5 MG PO QPM, (Reported) Allergies Coded Allergies: No Known Allergies (Unverified , 08/10/19) JUAN MULLIGAN DO Apr 14, 2020 16:35
[2020-04-14] MEDS: LEVOTHYROXINE 75MCG TABLET (0.075MG) PO SCH (17:49)
[2020-04-14] MEDS: ASPIRIN ENTERIC 325 MG TAB PO SCH (17:49)
[2020-04-14] MEDS: CLOPIDOGREL 75 MG TAB PO SCH (17:49)
[2020-04-14] MEDS: ATORVASTATIN 20 MG TAB PO SCH (17:49)
[2020-04-14] MEDS: CALCIUM/VITAMIN D 500 MG TAB PO SCH (17:49)
[2020-04-14 17:50] VITALS: BP 159/76
[2020-04-14] MEDS: METOPROLOL SUCC (TopROL XL) 100MG *XL* TAB PO SCH (17:50)
[2020-04-14 18:00] VITALS: BP 162/78
[2020-04-14] MEDS: SPIRONOLACTONE 12.5MG PER 1/2 TABLET PO SCH (18:25)
[2020-04-14] MEDS ORDERED: LEVEMIR (INSULIN DETEMIR) 1 UNITS/0.01ML SC SCH (21:00)
== END 2020-04-14 20:00 | disposition home health service (06) | DRG 256 ==
LOC: M ED 16:59 → M ED INP 20:30 → ENRESERV 21:04 → M MSPAV 21:38
PROVIDERS: ADMIT Internal Medicine; ATTEND Internal Medicine
PROC: 0Y6Y0Z0 Detachment at Left 5th Toe, Complete, Open Approach (ICD-10-PCS; principal; 2020-04-11 16:30)
DX: E11.52 Type 2 diabetes mellitus with diabetic peripheral angiopathy with gangrene (principal); N17.9 Acute kidney failure, unspecified; M86.172 Other acute osteomyelitis, left ankle and foot; I96 Gangrene, not elsewhere classified; E11.69 Type 2 diabetes mellitus with other specified complication; E03.9 Hypothyroidism, unspecified; I11.0 Hypertensive heart disease with heart failure; I25.10 Atherosclerotic heart disease of native coronary artery without angina pectoris; Z79.82 Long term (current) use of aspirin; Z79.899 Other long term (current) drug therapy; Z79.4 Long term (current) use of insulin; I25.2 Old myocardial infarction; I50.9 Heart failure, unspecified; B95.5 Unspecified streptococcus as the cause of diseases classified elsewhere; B95.61 Methicillin susceptible Staphylococcus aureus infection as the cause of diseases classified elsewhere

== ENCOUNTER → 2020-05-01 | Outpatient (POV) | payer MEDICARE, OTHER ==
[~2020-05-01] MED LIST changes: +AUGM875T28 PO; +CLOP75TA2 PO; +LEVO75TA4 PO; +LEVO88TA3; +LISI10TA4 PO; +TOPR100T PO
--- NOTE | 2020-05-02 08:52 | IRPN ---
[facility] IR Progress Note IR Progress Note DATE: May 01, 2020 Patient's sister agreed to this telephone consultation. Duration of call was 5 minutes. FOLLOW-UP: 1 month status post angioplasty of left SFA and popliteal artery for left leg pain and gangrene. Patient's sister states he is doing well, no pain, bleeding or issues post procedure. No video on patient side. IMPRESSION: Doing well status post left leg angiogram and angioplasty. Continue follow up with wound care. Continue aspirin and Plavix. IR follow up in 6 months. Thank you for this referral cc Nessa Liao Allergies Coded Allergies: No Known Allergies (Unverified , 08/10/19) DEBRA ROGERS MD May 02, 2020 08:52
== END ==
LOC: M TMIRPOV 08:09
PROVIDERS: ATTEND Radiology Diagnostic Radiology
DX: Z48.812 Encounter for surgical aftercare following surgery on the circulatory system (principal)

== ENCOUNTER → 2021-03-28 | Outpatient (REF) | payer MEDICARE, OTHER ==
[~2021-03-28] MED LIST changes: -AMIO200T PO; +AMIO200T3 PO; +LISI10TA22 PO; -LISI10TA4 PO
[2021-03-28 15:42] LABS: BASO # 0.1 10^3/uL (0.0-0.2); BASO % 0.5 % (0.0-1.0); EOS # 0.2 10^3/uL (0.0-0.5); EOS % 1.6 % (0.0-3.0); HEMATOCRIT 45.3 % (42.0-52.0); LYMPH # 4.2 10^3/uL (1.5-5.0); LYMPH % 33.2 % (24.0-44.0); MEAN CORPUSCULAR HEMOGLOBIN 30.4 pg (27.0-33.0); MEAN CORPUSCULAR HGB CONC 33.1 g/dl (32.0-36.5); MEAN CORPUSCULAR VOLUME 91.7 fl (80.0-96.0); MONO # 0.9 10^3/uL (0.0-0.8); MONO % 7.2 % (2.0-8.0); NEUTROPHILS # 7.3 10^3/uL (1.5-8.5); NEUTROPHILS % 57.1 % (36.0-66.0); PLATELET COUNT, AUTOMATED 225 10^3/uL (150-450); RED BLOOD COUNT 4.94 10^6/uL (4.30-6.10); WHITE BLOOD COUNT 12.8 10^3/uL (4.0-10.0)
[2021-03-28 15:59] LABS: HEMOGLOBIN A1c 11.7 %
[2021-03-28 16:21] LABS: ALBUMIN 3.4 GM/DL (3.2-5.2); ALT/SGPT 41 U/L (12-78); BILIRUBIN,TOTAL 0.4 MG/DL (0.2-1.0); BLOOD UREA NITROGEN 31 MG/DL (7-18); CALCIUM LEVEL 9.4 MG/DL (8.8-10.2); CARBON DIOXIDE LEVEL 30 MEQ/L (21-32); CHLORIDE LEVEL 99 MEQ/L (98-107); CHOLESTEROL LEVEL 158 MG/DL (<200); CHOLESTEROL RISK RATIO 4.388 (<5); CREATININE FOR GFR 1.64 MG/DL (0.70-1.30); FREE T4 1.06 NG/DL (0.76-1.46); GLOMERULAR FILTRATION RATE 45.5 (>49); GLUCOSE, FASTING 117 MG/DL (70-100); HDL CHOLESTEROL 36 MG/DL (>40); NON-HDL-C 122 MG/DL; POTASSIUM SERUM 4.1 MEQ/L (3.5-5.1); SODIUM LEVEL 138 MEQ/L (136-145); TOTAL PROTEIN 7.1 GM/DL (6.4-8.2); TRIGLYCERIDES LEVEL 447 MG/DL (<150)
[2021-03-28 16:43] LABS: MAU/CREAT RATIO 870.8 MCG/MG (0.0-30.0)
[2021-03-28 20:27] LABS: TOTAL 25(OH) VITAMIN D 21.4 NG/ML (30.0-100.0)
== END ==
LOC: M SFHCCAPE 08:38
PROVIDERS: ATTEND Physician Assistant
DX: E03.9 Hypothyroidism, unspecified (principal); I10 Essential (primary) hypertension; E11.69 Type 2 diabetes mellitus with other specified complication; E11.621 Type 2 diabetes mellitus with foot ulcer; E66.9 Obesity, unspecified; Z12.5 Encounter for screening for malignant neoplasm of prostate; Z79.899 Other long term (current) drug therapy
CPT/HCPCS: 80053; 80061; 82043; 82306; 83036; 84439; 84443; 85025; G0103

== ENCOUNTER → 2021-04-11 | Outpatient (REF) | payer MEDICARE, OTHER ==
[2021-04-11 16:09] LABS: APPEARANCE, URINE CLEAR (CLEAR); BACTERIA, URINE AUTO NEGATIVE (NEGATIVE); BILIRUBIN, URINE AUTO NEGATIVE (NEGATIVE); BLOOD, URINE BLOOD NEGATIVE (NEGATIVE); COLOR, URINE YELLOW (YELLOW); GLUCOSE, URINE (UA) AUTO 3+ mg/dL (NEGATIVE); KETONE, URINE AUTO NEGATIVE (NEGATIVE); LEUKOCYTE ESTERASE, URINE AUTO NEGATIVE (NEGATIVE); NITRITE, URINE AUTO NEGATIVE (NEGATIVE); PROTEIN, URINE AUTO 2+ mg/dL (NEGATIVE); RBC, URINE AUTO 0 /HPF (0-3); SPECIFIC GRAVITY URINE AUTO 1.022 (1.002-1.035); SQUAMOUS EPITHELIAL CELL UR AU 1 /HPF (0-6); UROBILINOGEN, URINE AUTO 0.2 mg/dL (0.0-2.0); WBC, URINE AUTO 1 /HPF (0-3)
[2021-04-11 16:25] LABS: BASO # 0.1 10^3/uL (0.0-0.2); BASO % 0.6 % (0.0-1.0); EOS # 0.2 10^3/uL (0.0-0.5); EOS % 2.1 % (0.0-3.0); HEMATOCRIT 43.1 % (42.0-52.0); HEMOGLOBIN 14.4 g/dl (13.5-17.5); LYMPH % 24.3 % (24.0-44.0); MEAN CORPUSCULAR HEMOGLOBIN 30.2 pg (27.0-33.0); MEAN CORPUSCULAR HGB CONC 33.4 g/dl (32.0-36.5); MEAN CORPUSCULAR VOLUME 90.4 fl (80.0-96.0); MONO # 0.8 10^3/uL (0.0-0.8); MONO % 10.2 % (2.0-8.0); NEUTROPHILS # 5.2 10^3/uL (1.5-8.5); NEUTROPHILS % 62.3 % (36.0-66.0); PLATELET COUNT, AUTOMATED 198 10^3/uL (150-450); RED BLOOD COUNT 4.77 10^6/uL (4.30-6.10); WHITE BLOOD COUNT 8.3 10^3/uL (4.0-10.0)
[2021-04-11 16:52] LABS: ALBUMIN 3.3 GM/DL (3.2-5.2); BILIRUBIN,TOTAL 0.3 MG/DL (0.2-1.0); CREATININE FOR GFR 1.59 MG/DL (0.70-1.30); GLOMERULAR FILTRATION RATE 47.2 (>49); POTASSIUM SERUM 4.4 MEQ/L (3.5-5.1); TOTAL PROTEIN 6.9 GM/DL (6.4-8.2)
== END ==
LOC: M SFHCCAPE 11:34
PROVIDERS: ATTEND Physician Assistant
DX: D72.829 Elevated white blood cell count, unspecified (principal); Z79.899 Other long term (current) drug therapy

== ENCOUNTER → 2022-05-28 | Outpatient (REF) | payer MEDICARE, OTHER ==
[~2022-05-28] MED LIST changes: -AMIO200T3 PO; +AMIO200T49 PO; -KLOR10TA76 PO; -LISI2.5T2 PO; +LISI2.5T9 PO; +POTA-136 PO
[2022-05-28 17:02] LABS: BASO # 0.1 10^3/uL (0.0-0.2); BASO % 0.6 % (0.0-1.0); EOS # 0.3 10^3/uL (0.0-0.5); EOS % 3.3 % (0.0-3.0); HEMATOCRIT 39.3 % (42.0-52.0); HEMOGLOBIN 13.1 g/dl (13.5-17.5); LYMPH # 3.6 10^3/uL (1.5-5.0); LYMPH % 40.8 % (24.0-44.0); MEAN CORPUSCULAR HEMOGLOBIN 29.7 pg (27.0-33.0); MEAN CORPUSCULAR HGB CONC 33.3 g/dl (32.0-36.5); MEAN CORPUSCULAR VOLUME 89.1 fl (80.0-96.0); MONO # 0.8 10^3/uL (0.0-0.8); MONO % 8.8 % (2.0-8.0); NEUTROPHILS # 4.1 10^3/uL (1.5-8.5); NEUTROPHILS % 46.2 % (36.0-66.0); PLATELET COUNT, AUTOMATED 187 10^3/uL (150-450); RED BLOOD COUNT 4.41 10^6/uL (4.30-6.10); WHITE BLOOD COUNT 8.8 10^3/uL (4.0-10.0)
[2022-05-28 18:24] LABS: PLATELET CLUMPS SMALL AMT; PLATELET ESTIMATE NORMAL (NORMAL)
[2022-05-28 19:26] LABS: ALBUMIN 3.2 GM/DL (3.2-5.2); BILIRUBIN,TOTAL 0.3 MG/DL (0.2-1.0); CALCIUM LEVEL 9.5 MG/DL (8.8-10.2); CHOLESTEROL RISK RATIO 3.593 (<5); CREATININE FOR GFR 1.45 MG/DL (0.70-1.30); GLOMERULAR FILTRATION RATE 52.3 (>49); POTASSIUM SERUM 4.7 MEQ/L (3.5-5.1); THYROID STIMULATING HORMONE 4.46 uIU/ML (0.358-3.740); TOTAL PROTEIN 6.8 GM/DL (6.4-8.2)
[2022-05-28 22:04] LABS: HEMOGLOBIN A1c 10.4 %
== END ==
LOC: M SFHCCAPE 08:03
PROVIDERS: ATTEND Physician Assistant
DX: E55.9 Vitamin D deficiency, unspecified (principal); E11.9 Type 2 diabetes mellitus without complications